=== PATIENT | male | born 1950 | race Caucasian/White ===

== ENCOUNTER 2024-07-03 08:10 | Outpatient (RCR) | payer MEDICARE, MEDICAID, SELFPAY ==
[2024-07-03 08:34] VITALS: BP 120/59; PULSE 65; RESP 16; TEMP 35.9
--- NOTE | 2024-07-03 09:42 | HP.PCM_ITS ---
History of Present Illness Date of Service: 07/03/24 Chief Complaint: Bilateral hallux full-thickness wounds. 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 Alvarez is a 74-year-old diabetic male presenting to wound care center today for evaluation of bilateral hallux wounds. Patient resides at a intermediate facility where he has seen wound care as well as podiatry without success of treatment of his hyperkeratotic tissue with underlying ulcerations. He is presenting today for surgical evaluation and treatment at the wound care center [facility]. He has finished a round of oral doxycycline. He does not show any infection at this time. Patient does admit to smoking as well as being diabetic. Nursing staff relates his blood sugar is controlled by the doctor at the [facility]. They deny any drainage or trauma at this time. Denies constitutional symptoms. No other pedal complaints at this time. PFSH Allergy/AdvReac Type Severity Reaction Status Date / Time chlorpromazine (From Allergy Unknown PT UNSURE Verified 07/03/24 08:53 Thorazine) OF REACTION codeine Allergy Unknown PT UNSURE Verified 07/03/24 08:53 OF REACTION haloperidol (From Haldol) Allergy Unknown PT UNSURE Verified 07/03/24 08:53 OF REACTION Social History Smoking Status: Current every day smoker Vital Signs Vital Signs Vital Signs: 07/03/24 08:34 Temperature 96.7 F L Temperature Source Temporal Pulse Rate 65 Respiratory Rate 16 Blood Pressure 120/59 L Blood Pressure Mean 79 Blood Pressure Source Monitor Blood Pressure Position Sitting Blood Pressure Location Left Forearm Oxygen Delivery Method Room Air Physical Exam Narrative Vascular: DP and PT pulses are palpable. CFT is brisk. +1 pitting edema appreciated bilateral lower extremity. No hair growth is appreciated. Skin temperature and turgor is within normal limits. No erythema. Neurological: Light touch intact. Patient does respond to painful stimuli. Dermatological: Full-thickness ulceration to right hallux measuring 0.8 x 0.4 x 0.2 cm. Wound base is granular nature. No sign of infection. Full-thickness ulceration to left hallux measuring 0.8 x 0.4 x 0.2 cm. Wound base is granular nature. No sign of infection. Toenails are thickened elongated discolored with evidence of some debris's. Webspaces 1 through 4 are clean dry and intact. Excisional debridement down to and including subcutaneous tissue with a number 3 mm dermal curette to the full-thickness ulceration to the right hallux without incident. Predebridement measurement was callus. Postdebridement measurement is 0.8 x 0.4 x 0.2 cm. Excisional debridement down to and including subcutaneous tissue with a number 3 mm dermal curette to the full-thickness ulceration to the left hallux without incident. Predebridement measurement was callus. Postdebridement measurement is 0.8 x 0.4 x 0.2 cm. Musculoskeletal: Decreased range of motion to the IPJ of the bilateral hallux. Decreased range of motion to first metatarsophalangeal joint bilateral. No pain with calf compression or pain to the full-thickness wounds. Debridement Note Debridement Note Debridement Free Text: Excisional debridement down to and including subcutaneous tissue with a number 3 mm dermal curette to the full-thickness ulceration to the right hallux without incident. Predebridement measurement was callus. Postdebridement measurement is 0.8 x 0.4 x 0.2 cm. Excisional debridement down to and including subcutaneous tissue with a number 3 mm dermal curette to the full-thickness ulceration to the left hallux without incident. Predebridement measurement was callus. Postdebridement measurement is 0.8 x 0.4 x 0.2 cm. Post-Debridement Measurements and Additional Note: Post-Debridement Measurements/Treatment - Nurse 1 - General Ulcer Assessment Start: 07/03/24 08:33 Freq: Status: Active Protocol: NARENDRA Activity Type Activity Date Activity User E-sign Co-sign Detail Recorded Client Recorded Date Recorded By Document 07/03/24 08:34 [facility] [id number] 07/03/24 08:52 [facility] 07/03/24 08:34 - Today's Visit Information Type of service Initial Visit Arrival Mode Wheelchair Transfer Assistance Other Transfer Assist (Other) standby Accompanied by 2 caregivers Patient Identification Verified (Name & Yes ) Vital Signs Temperature (97.8 F-99.1 F) 96.7 F L Temperature Source Temporal Pulse Rate (60-100) 65 Respiratory Rate (12-18) 16 Respiratory rate source Observation Oxygen Delivery Method Room Air Blood Pressure (90/60-120/80) 120/59 L Blood Pressure Mean 79 Source Monitor Position Sitting Blood Pressure Location Left Forearm History Since Last Visit- (Skip if this is Patient's initial visit) Left Footwear Slipper Right Footwear Slipper Pain Scale: 0-10 Numeric Is Patient Pain Free? Yes Lower Extremity Assessment/ Foot Assessment/ Toe Nail Assessment Right -Posterior Tibial Doppler Monophasic -Dorsalis Pedis Doppler Monophasic -Extremity Color Pale -Hair Growth on Legs No -Hair Growth on Toes No -Temperature of Extremity Warm -Capillary Refill Less than 3 Seconds -Other Deformity No -Prior Foot Ulcer No -Charcot Joint No -Prior Amputation No -Thick Yes -Discolored Yes -Deformed No -Improper Length & Hygeine Yes Left -Posterior Tibial Doppler Monophasic -Dorsalis Pedis Doppler Monophasic -Extremity Color Pale -Hair Growth on Legs No -Hair Growth on Toes No -Temperature of Extremity Warm -Capillary Refill Less than 3 Seconds -Other Deformity No -Prior Foot Ulcer No -Charcot Joint No -Prior Amputation No -Thick Yes -Discolored Yes -Deformed No -Improper Length & Hygeine Yes Communication Assessment Preferred language Haitian Cook Mayonnaise Required No Able to Read Yes Able to Write Yes Right Hearing Abillity Normal Left Hearing Abillity Normal Visual Assistive Devices None Teaching Assessment Barriers to Learning Knowledge Deficit Readiness To Learn Fair Willingness to Engage in Self Management Low Activies Readiness to Engage in Self Management Low Activities Anxiety Level Anxious Cooperation Cooperative Perception Coherent Interest in Health Problem Asks Questions Education Importance Acknowledges Need Does Patient Smoke tobacco or other No substances Smoking Status Current every day smoker Is Patient Diabetic Yes WC - Nurse 1 - General Ulcer Measurement Start: 07/03/24 08:33 Freq: Status: Active Protocol: Activity Type Activity Date Activity User E-sign Co-sign Detail Recorded Client Recorded Date Recorded By Document 07/03/24 08:34 [facility] [id number] 07/03/24 08:52 [facility] 07/03/24 08:34 Wound Center Nurse 1 #2- L HALLUX -Combined with other wound No -Current Size (cm) - Length 0.3 -Current Size (cm) - Width 0.2 -Current Size (cm) - Depth 0.2 -Total Square Cm 0.06 -Date of Last Picture (Recall this 07/03/24 field) -Photo Taken Yes -Tunneling No -Undermining/Tunneling No -Circular Undermining No -Exudate Amt Medium -Exudate Type Serosanguineous -Wound Margin Distinct, Outline Attached -Granulation Amt Large (67-100%) -Granulation Quality [place] -Slough/Fibrin Yes -Necrosis Amt Small (1-33%) -Necrotic Tissue Type Eschar -Texture (Halley-wound Skin Appearance) Assessed,Callus ,Scarring -Moisture (Halley-wound Skin Appearance) Assessed,Dry/ Scaly -Color (Halley-wound Skin Appearance) No Abnormality -Temperature (Halley-wound Skin No Abnormality Appearance) (Pt Warm) -Tenderness on Palpation (Halley-wound No Skin Appearance) -Ulcer Cleansing Soap and Water -Foul Odor after Cleansing No -Anesthetic Used 5% Lidocaine Gel #1- R HALLUX -Combined with other wound No -Current Size (cm) - Length 0.1 -Current Size (cm) - Width 0.1 -Current Size (cm) - Depth 0.3 -Total Square Cm 0.01 -Date of Last Picture (Recall this 07/03/24 field) -Photo Taken Yes -Epithelialization None Present -Tunneling No -Undermining/Tunneling No -Circular Undermining No -Exudate Amt Medium -Exudate Type Serosanguineous -Wound Margin Distinct, Outline Attached -Granulation Amt None Present (0 %) -Slough/Fibrin Yes -Necrosis Amt Large (67-100%) -Necrotic Tissue Type Eschar -Texture (Halley-wound Skin Appearance) Assessed,Callus ,Localized Edema -Moisture (Halley-wound Skin Appearance) Assessed,Dry/ Scaly -Color (Halley-wound Skin Appearance) Assessed -Temperature (Halley-wound Skin No Abnormality Appearance) (Pt Warm) -Tenderness on Palpation (Halley-wound No Skin Appearance) -Ulcer Cleansing Soap and Water -Foul Odor after Cleansing No -Anesthetic Used 5% Lidocaine Gel Lower Limb Edema Present Yes Right Calf (cm) 39.6 Right Ankle (cm) 24.6 Left Calf (cm) 40.3 Left Ankle (cm) 25.1 WC - Nurse 2 - General Ulcer CM Notes Start: 07/03/24 08:33 Freq: Status: Active Protocol: Activity Type Activity Date Activity User E-sign Co-sign Detail Recorded Client Recorded Date Recorded By Document 07/03/24 09:14 ANTHONY [id number] 07/03/24 09:16 ANTHONY 07/03/24 09:14 Wound Center Nurse 2 #2- L HALLUX -Time 09:14 -Correct Patient Yes -Correct Side, Site, Position Yes -Correct Procedure Yes -Procedure Performed Yes -Type of Procedure Debridement -Clinical Debridement Subcutaneous -Tissue Removed Subcutaneous -Post Debridement (cm) - Length 0.8 -Post Debridement (cm) - Width 0.4 -Post Debridement (cm) - Depth 0.2 -Total Square (Post) (cm) 0.32 -Area of Debridement (cm) - Length 0.8 -Area of Debridement (cm) - Width 0.4 -Total Square (Area) (cm) 0.32 -Tunneling No -Undermining/Tunneling No -Circular Undermining No -Wound/Ulcer Outcome Not Healed -Ulcer Cleansing Rinsed/ Irrigated with Saline -Foul Odor after Cleansing No -Bioengineered Tissue No -Bleeding Controlled with Pressure -Treatment Response Procedure Tolerated Well -Offloading No -Debridement - Subq, 1st 20sq cm Yes #1- R HALLUX -Time 09:15 -Correct Patient Yes -Correct Side, Site, Position Yes -Correct Procedure Yes -Procedure Performed Yes -Type of Procedure Debridement -Clinical Debridement Subcutaneous -Tissue Removed Subcutaneous -Post Debridement (cm) - Length 0.8 -Post Debridement (cm) - Width 0.4 -Post Debridement (cm) - Depth 0.1 -Total Square (Post) (cm) 0.32 -Area of Debridement (cm) - Length 0.8 -Area of Debridement (cm) - Width 0.4 -Total Square (Area) (cm) 0.32 -Tunneling No -Undermining/Tunneling No -Circular Undermining No -Wound/Ulcer Outcome Not Healed -Ulcer Cleansing Rinsed/ Irrigated with Saline -Foul Odor after Cleansing No -Bioengineered Tissue No -Bleeding Controlled with Pressure -Treatment Response Procedure Tolerated Well -Offloading No -Debridement - Subq, 1st 20sq cm No Pain Scale: 0-10 Numeric Is Patient Pain Free? Yes WC - Nurse 3 - General Ulcer D/C NN Start: 07/03/24 08:33 Freq: Status: Active Protocol: Activity Type Activity Date Activity User E-sign Co-sign Detail Recorded Client Recorded Date Recorded By Document 07/03/24 09:23 KW [id number] 07/03/24 09:23 KW 07/03/24 09:23 Wound Care Center Nurse 3 #2- L HALLUX -Other Dressing BETADINE -Primary Dressing Covered/Secured with Dry Gauze, Secured with Tape #1- R HALLUX -Other Dressing BETADINE -Primary Dressing Covered/Secured with Dry Gauze, Secured with Tape Pain Scale: 0-10 Numeric Is Patient Pain Free? Yes WC - Visit Discharge Discharge Condition Stable Ambulatory Status Wheelchair Medication Reconcilliation completed & No provided to patient/care provider Clinical Summary of Care Provided Yes Assessment/Plan Assessment/Plan (1) Non-pressure chronic ulcer of other part of right foot with fat layer exposed: CODE(S): L97.512 - Non-pressure chronic ulcer of other part of right foot with fat layer exposed PLAN: Patient was examined and evaluated. All findings were discussed with the patient. All questions were answered to the patient's satisfaction. Excisional debridement down to and including subcutaneous tissue with a number 3 mm dermal curette to the full-thickness ulceration to the right hallux without incident. Predebridement measurement was callus. Postdebridement measurement is 0.8 x 0.4 x 0.2 cm. Excisional debridement down to and including subcutaneous tissue with a number 3 mm dermal curette to the full-thickness ulceration to the left hallux without incident. Predebridement measurement was callus. Postdebridement measurement is 0.8 x 0.4 x 0.2 cm. The bilateral hallux were cleaned and patted dry. Betadine paint was applied to all wounds and covered with sterile Band-Aid. Nursing wound care orders were dispensed to the nursing staff that was present with the patient today. Due to the patient's location and chronicity of the full-thickness wounds the patient will be booked for surgery for the left foot then in about 6 weeks we will do surgery on the right foot consisting of hallux arthroplasty with delayed primary closure. Patient will need vascular studies prior to surgery to see if the patient is at risk for delayed healing. I did educate the patient on smoking and that smoking can cause decreased and vascular flow to the bilateral lower extremity which she was understanding of but shows no eagerness to quit smoking. He understands all risk and benefits though. I educated the patient on strict blood sugar control until we move forward with surgery which she was understanding of. Culture was taken of the bilateral hallux as we placed on antibiotics as needed. Follow-up at the wound care center with Dr. Mcdaniel in 1 week. (2) Non-pressure chronic ulcer of other part of left foot with fat layer exposed: CODE(S): L97.522 - Non-pressure chronic ulcer of other part of left foot with fat layer exposed (3) Other specified peripheral vascular diseases: CODE(S): I73.89 - Other specified peripheral vascular diseases (4) Chronic painful diabetic polyneuropathy: CODE(S): E11.42 - Type 2 diabetes mellitus with diabetic polyneuropathy
--- NOTE | 2024-07-09 11:24 | WC ---
PHOTO 07/03/24 LEFT HALLUX
--- NOTE | 2024-07-09 11:26 | WC ---
PHOTO 07/03/24 RIGHT HALLUX
== END 2024-07-03 23:59 | disposition home or self-care (01) ==
LOC: WC 08:10
PROVIDERS: PCP Internal Medicine Infectious Disease; Referring Provider Internal Medicine Infectious Disease; Visit Provider Podiatrist Foot & Ankle Surgery
DX: E11.621 Type 2 diabetes mellitus with foot ulcer (principal); L97.522 Non-pressure chronic ulcer of other part of left foot with fat layer exposed; L97.512 Non-pressure chronic ulcer of other part of right foot with fat layer exposed; E11.42 Type 2 diabetes mellitus with diabetic polyneuropathy; E11.51 Type 2 diabetes mellitus with diabetic peripheral angiopathy without gangrene; F17.200 Nicotine dependence, unspecified, uncomplicated; Z79.82 Long term (current) use of aspirin; Z79.84 Long term (current) use of oral hypoglycemic drugs
CPT/HCPCS: 11042; 87070; 87075; 87077; 87186; 87205; 99214; G0463

== ENCOUNTER 2024-08-01 08:15 | Outpatient (RCR) | payer MEDICARE, MEDICAID, SELFPAY ==
[2024-07-04 00:53] VITALS: BP 120/59; PULSE 65; RESP 16; TEMP 35.9
[2024-07-11 08:09] VITALS: BP 153/80; PULSE 72; RESP 18
--- NOTE | 2024-07-11 11:02 | PCM.WC.PN ---
History of Present Illness Date of Service: 07/11/24 Chief Complaint: Bilateral hallux full-thickness wounds. 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 Ruiz is a 74-year-old diabetic male presenting with concern today follow-up evaluation of full-thickness wound to the bilateral hallux. Patient has been compliant with dressing changes at retirement facility. He does continue to smoke. Blood sugar well-controlled. He denies any trauma. Denies constitutional symptoms. No pain complaints at this time. Objective Data Objective Data Vital Signs: Vital Signs Temp Pulse Resp BP O2 Del Method 96.7 F L 72 18 153/80 H Room Air 07/04/24 00:53 07/11/24 08:09 07/11/24 08:09 07/11/24 08:09 07/11/24 08:09 Oxygen Delivery Method Room Air Physical Exam Narrative Vascular: DP and PT pulses are palpable. CFT is brisk. +1 pitting edema appreciated bilateral lower extremity. No hair growth is appreciated. Skin temperature and turgor is within normal limits. No erythema. Neurological: Light touch intact. Patient does respond to painful stimuli. Dermatological: Full-thickness ulceration to right hallux measuring 0.6 x 0.3 x 0.1 cm. Wound base is granular nature. No sign of infection. Full-thickness ulceration to left hallux measuring 0.3 x 0.3 x 0.1 cm. Wound base is granular nature. No sign of infection. Toenails are thickened elongated discolored with evidence of some debris's. Webspaces 1 through 4 are clean dry and intact. Excisional debridement down to and including subcutaneous tissue with a number 3 mm dermal curette to the full-thickness ulceration to the right hallux without incident. Predebridement measurement was callus. Postdebridement measurement is 0.6 x 0.3 x 0.1 cm. Excisional debridement down to and including subcutaneous tissue with a number 3 mm dermal curette to the full-thickness ulceration to the left hallux without incident. Predebridement measurement was callus. Postdebridement measurement is 0.3 x 0.3 x 0.1 cm. Musculoskeletal: Decreased range of motion to the IPJ of the bilateral hallux. Decreased range of motion to first metatarsophalangeal joint bilateral. No pain with calf compression or pain to the full-thickness wounds. Debridement Note Debridement Note Debridement Free Text: Excisional debridement down to and including subcutaneous tissue with a number 3 mm dermal curette to the full-thickness ulceration to the right hallux without incident. Predebridement measurement was callus. Postdebridement measurement is 0.6 x 0.3 x 0.1 cm. Excisional debridement down to and including subcutaneous tissue with a number 3 mm dermal curette to the full-thickness ulceration to the left hallux without incident. Predebridement measurement was callus. Postdebridement measurement is 0.3 x 0.3 x 0.1 cm. 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 Any new allergies or adverse reactions No Had a fall/change in ADL's that may No increase risk of falls Signs or symptoms of abuse and/or No neglect since last visit Have you been in the hospital since your No last visit? Has dressing in place as prescribed Yes Has compression in place as prescribed Yes Has offloadiing in place as prescribed N/A Experienced any changes in pain level or No management Left Footwear Regular Shoe Right Footwear Regular Shoe Pain Scale: 0-10 Numeric Is Patient Pain Free? Yes - Nurse 1 - General Ulcer Measurement Start: 07/11/24 08:09 Freq: Status: Active Protocol: Activity Type Activity Date Activity User E-sign Co-sign Detail Recorded Client Recorded Date Recorded By Document 07/11/24 08:09 KW [id number] 07/11/24 08:15 KW 07/11/24 08:09 Wound Center Nurse 1 #2- L HALLUX -Current Size (cm) - Length 0.1 -Current Size (cm) - Width 0.1 -Current Size (cm) - Depth 0.1 -Total Square Cm 0.01 -Texture (Halley-wound Skin Appearance) Assessed,Callus -Moisture (Halley-wound Skin Appearance) Assessed -Color (Halley-wound Skin Appearance) Assessed -Temperature (Halley-wound Skin No Abnormality Appearance) (Pt Warm) -Tenderness on Palpation (Halley-wound No Skin Appearance) -Ulcer Cleansing Rinsed/ Irrigated with Saline -Foul Odor after Cleansing No -Anesthetic Used 5% Lidocaine Gel #1- R HALLUX -Current Size (cm) - Length 0.1 -Current Size (cm) - Width 0.1 -Current Size (cm) - Depth 0.1 -Total Square Cm 0.01 -Texture (Halley-wound Skin Appearance) Assessed,Callus -Moisture (Halley-wound Skin Appearance) Assessed -Color (Halley-wound Skin Appearance) Assessed -Temperature (Halley-wound Skin No Abnormality Appearance) (Pt Warm) -Tenderness on Palpation (Halley-wound No Skin Appearance) -Ulcer Cleansing Rinsed/ Irrigated with Saline -Foul Odor after Cleansing No -Anesthetic Used 5% Lidocaine Gel WC - Nurse 2 - General Ulcer CM Notes Start: 07/11/24 08:09 Freq: Status: Active Protocol: Activity Type Activity Date Activity User E-sign Co-sign Detail Recorded Client Recorded Date Recorded By Document 07/11/24 08:44 JF [id number] 07/11/24 08:47 JF 07/11/24 08:44 Wound Center Nurse 2 #2- L HALLUX -Time 08:46 -Correct Patient Yes -Correct Side, Site, Position Yes -Correct Procedure Yes -Procedure Performed Yes -Type of Procedure Debridement -Clinical Debridement Subcutaneous -Tissue Removed Subcutaneous -Post Debridement (cm) - Length 0.3 -Post Debridement (cm) - Width 0.3 -Post Debridement (cm) - Depth 0.1 -Total Square (Post) (cm) 0.09 -Area of Debridement (cm) - Length 0.3 -Area of Debridement (cm) - Width 0.3 -Total Square (Area) (cm) 0.09 -Tunneling No -Undermining/Tunneling No -Circular Undermining No -Wound/Ulcer Outcome Not Healed -Ulcer Cleansing Rinsed/ Irrigated with Saline -Foul Odor after Cleansing No -Bioengineered Tissue No -Bleeding Controlled with Pressure -Treatment Response Procedure Tolerated Well -Offloading No -Debridement - Subq, 1st 20sq cm No #1- R HALLUX -Time 08:47 -Correct Patient Yes -Correct Side, Site, Position Yes -Correct Procedure Yes -Procedure Performed Yes -Type of Procedure Debridement -Clinical Debridement Subcutaneous -Tissue Removed Subcutaneous -Post Debridement (cm) - Length 0.6 -Post Debridement (cm) - Width 0.3 -Post Debridement (cm) - Depth 0.1 -Total Square (Post) (cm) 0.18 -Area of Debridement (cm) - Length 0.6 -Area of Debridement (cm) - Width 0.3 -Total Square (Area) (cm) 0.18 -Tunneling No -Undermining/Tunneling No -Circular Undermining No -Wound/Ulcer Outcome Not Healed -Ulcer Cleansing Rinsed/ Irrigated with Saline -Foul Odor after Cleansing No -Bioengineered Tissue No -Bleeding Controlled with Pressure -Treatment Response Procedure Tolerated Well -Offloading No -Debridement - Subq, 1st 20sq cm Yes Pain Scale: 0-10 Numeric Is Patient Pain Free? Yes - Nurse 3 - General Ulcer D/C NN Start: 07/11/24 08:09 Freq: Status: Active Protocol: Activity Type Activity Date Activity User E-sign Co-sign Detail Recorded Client Recorded Date Recorded By Document 07/11/24 08:52 KW [id number] 07/11/24 08:52 KW 07/11/24 08:52 Wound Care Center Nurse 3 #2- L HALLUX -Other Dressing betadine -Primary Dressing Covered/Secured with Dry Gauze, Secured with Tape #1- R HALLUX -Other Dressing betadine -Primary Dressing Covered/Secured with Dry Gauze, Secured with Tape Pain Scale: 0-10 Numeric Is Patient Pain Free? Yes - Visit Discharge Discharge Condition Stable Ambulatory Status Ambulatory Medication Reconcilliation completed & No provided to patient/care provider Clinical Summary of Care Provided Yes Assessment/Plan Assessment/Plan (1) Non-pressure chronic ulcer of other part of left foot with fat layer exposed: CODE(S): L97.522 - Non-pressure chronic ulcer of other part of left foot with fat layer exposed PLAN: Patient was examined and evaluated. All findings were discussed with the patient. All questions were answered to the patient's satisfaction. Excisional debridement down to and including subcutaneous tissue with a number 3 mm dermal curette to the full-thickness ulceration to the right hallux without incident. Predebridement measurement was callus. Postdebridement measurement is 0.6 x 0.3 x 0.1 cm. Excisional debridement down to and including subcutaneous tissue with a number 3 mm dermal curette to the full-thickness ulceration to the left hallux without incident. Predebridement measurement was callus. Postdebridement measurement is 0.3 x 0.3 x 0.1 cm. The bilateral hallux's were wiped clean and patted dry. Betadine paint and dry sterile dressing was applied to the hallux bilaterally. Patient will continue daily dressing change retirement facility. The patient will also be placed on Bactrim DS twice daily for 2 weeks due to his culture and sensitivity returning with bacterial growth. Will begin authorization through the patient's insurance for surgery to the right hallux for IPJ arthroplasty and delayed primary closure. Patient understands all risk and benefits. Follow-up at the wound care center with Dr. Mcdaniel in 1 week. (2) Non-pressure chronic ulcer of other part of right foot with fat layer exposed: CODE(S): L97.512 - Non-pressure chronic ulcer of other part of right foot with fat layer exposed (3) Chronic painful diabetic polyneuropathy: CODE(S): E11.42 - Type 2 diabetes mellitus with diabetic polyneuropathy
[2024-07-18 08:27] VITALS: BP 153/63; PULSE 73; RESP 18; TEMP 35.7
--- NOTE | 2024-07-18 08:57 | PN.PCM_ITS ---
History of Present Illness Date of Service: 07/11/24 Chief Complaint: Bilateral hallux full-thickness wounds. 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 Ruiz is a 74-year-old diabetic male presenting with concern today follow- up evaluation of full-thickness wound to the bilateral hallux. Patient has been getting dressing changes at the nursing facility and is been authorized to his POA to move forward with elective surgery to the right great toe. He also complains of swelling to the left leg. He has no pain to the bilateral lower extremity. Denies trauma. Denies constitutional symptoms. No other pedal complaints at this time. Objective Data Objective Data Vital Signs: Vital Signs Temp Pulse Resp BP O2 Del Method 96.3 F L 73 18 153/63 H Room Air 07/18/24 08:27 07/18/24 08:27 07/18/24 08:27 07/18/24 08:27 07/18/24 08:27 Oxygen Delivery Method Room Air Physical Exam Narrative Vascular: DP and PT pulses are palpable. CFT is brisk. No hair growth is appreciated. Skin temperature and turgor is within normal limits. No erythema. Nonpitting edema to the bilateral lower extremity. Neurological: Light touch intact. Patient does respond to painful stimuli. Dermatological: Full-thickness ulceration to right hallux measuring 0.7 x 0.3 x 0.1 cm. Wound base is granular nature. No sign of infection. Full-thickness ulceration to left hallux measuring 0.6 x 0.5 x 0.1 cm. Wound base is granular nature. No sign of infection. Toenails are thickened elongated discolored with evidence of some debris's. Webspaces 1 through 4 are clean dry and intact. Excisional debridement down to and including subcutaneous tissue with a number 3 mm dermal curette to the full-thickness ulceration to the right hallux without incident. Predebridement measurement was callus. Postdebridement measurement is 0.7 x 0.3 x 0.1 cm. Excisional debridement down to and including subcutaneous tissue with a number 3 mm dermal curette to the full-thickness ulceration to the left hallux without incident. Predebridement measurement was callus. Postdebridement measurement is 0.6 x 0.5 x 0.1 cm. Musculoskeletal: Decreased range of motion to the IPJ of the bilateral hallux. Decreased range of motion to first metatarsophalangeal joint bilateral. No pain with calf compression or pain to the full-thickness wounds. Debridement Note Debridement Note Debridement Free Text: Excisional debridement down to and including subcutaneous tissue with a number 3 mm dermal curette to the full-thickness ulceration to the right hallux without incident. Predebridement measurement was callus. Postdebridement measurement is 0.7 x 0.3 x 0.1 cm. Excisional debridement down to and including subcutaneous tissue with a number 3 mm dermal curette to the full-thickness ulceration to the left hallux without incident. Predebridement measurement was callus. Postdebridement measurement is 0.6 x 0.5 x 0.1 cm. 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 PRESS OPERATOR ) ) Arrival Mode Wheelchair Wheelchair Transfer Assistance None Accompanied by care staff [employer]FF Patient Identification Verified (Name & Yes Yes ) Vital Signs Temperature (97.8 F-99.1 F) 96.3 F L Temperature Source Temporal Pulse Rate (60-100) 72 73 Pulse Location Monitor Monitor Respiratory Rate (12-18) 18 18 Respiratory rate source Observation Observation Oxygen Delivery Method Room Air Room Air Blood Pressure (90/60-120/80) 153/80 H 153/63 H Blood Pressure Mean (mm Hg) 104 93 Source Monitor Monitor Position Semi-Fowlers Sitting Blood Pressure Location Left Arm Left Arm History Since Last Visit- (Skip if this is Patient's initial visit) Have you changed medications since your No No last visit? Any new allergies or adverse reactions No No Had a fall/change in ADL's that may No No increase risk of falls Signs or symptoms of abuse and/or No No neglect since last visit Have you been in the hospital since your No No last visit? Has dressing in place as prescribed Yes Yes Has compression in place as prescribed Yes N/A Has offloadiing in place as prescribed N/A N/A Experienced any changes in pain level or No No management Left Footwear Regular Shoe Regular Shoe Right Footwear Regular Shoe Regular Shoe Pain Scale: 0-10 Numeric Is Patient Pain Free? Yes Yes WC - Nurse 1 - General Ulcer Measurement Start: 07/11/24 08:09 Freq: Status: Active Protocol: Activity Type Activity Date Activity User E-sign Co-sign Detail Recorded Client Recorded Date Recorded By Document 07/11/24 08:09 KW [id number] 07/11/24 08:15 KW Document 07/18/24 08:27 GM [id number] 07/18/24 08:30 GM 07/11/24 07/18/24 08:09 08:27 Wound Center Nurse 1 #2- L HALLUX -Current Size (cm) - Length 0.1 0.4 -Current Size (cm) - Width 0.1 0.4 -Current Size (cm) - Depth 0.1 0.1 -Total Square Cm 0.01 0.16 -Date of Last Picture (Recall this 07/18/24 field) -Photo Taken Yes -Epithelialization None Present -Tunneling No -Undermining/Tunneling No -Circular Undermining No -Exudate Amt None Present -Wound Margin Thickened -Granulation Amt Small (1-33%) -Granulation Quality Pale -Slough/Fibrin Yes -Necrosis Amt Small (1-33%) -Texture (Halley-wound Skin Appearance) Assessed,Callus Assessed,Callus -Moisture (Halley-wound Skin Appearance) Assessed Assessed -Color (Halley-wound Skin Appearance) Assessed Assessed -Temperature (Halley-wound Skin No Abnormality No Abnormality Appearance) (Pt Warm) (Pt Warm) -Tenderness on Palpation (Halley-wound No No Skin Appearance) -Ulcer Cleansing Rinsed/ Soap and Water Irrigated with Saline -Foul Odor after Cleansing No No -Anesthetic Used 5% Lidocaine 5% Lidocaine Gel Gel #1- R HALLUX -Current Size (cm) - Length 0.1 0.5 -Current Size (cm) - Width 0.1 0.2 -Current Size (cm) - Depth 0.1 0.1 -Total Square Cm 0.01 0.10 -Date of Last Picture (Recall this 07/18/24 field) -Photo Taken Yes -Epithelialization None Present -Tunneling No -Undermining/Tunneling No -Circular Undermining No -Exudate Amt None Present -Wound Margin Thickened -Granulation Amt Small (1-33%) -Granulation Quality [place] -Texture (Halley-wound Skin Appearance) Assessed,Callus Assessed -Moisture (Halley-wound Skin Appearance) Assessed Assessed -Color (Halley-wound Skin Appearance) Assessed Assessed -Temperature (Halley-wound Skin No Abnormality No Abnormality Appearance) (Pt Warm) (Pt Warm) -Tenderness on Palpation (Halley-wound No No Skin Appearance) -Ulcer Cleansing Rinsed/ Soap and Water Irrigated with Saline -Foul Odor after Cleansing No No -Anesthetic Used 5% Lidocaine 5% Lidocaine Gel Gel Lower Limb Edema Present Yes Right Calf (cm) 39.3 Right Ankle (cm) 24.0 Left Calf (cm) 40 Left Ankle (cm) 25 WC - Nurse 2 - General Ulcer CM Notes Start: 07/11/24 08:09 Freq: Status: Active Protocol: Activity Type Activity Date Activity User E-sign Co-sign Detail Recorded Client Recorded Date Recorded By Document 07/11/24 08:44 JF [id number] 07/11/24 08:47 Document 07/18/24 08:45 JF [id number] 07/18/24 08:48 07/11/24 07/18/24 08:44 08:45 Wound Center Nurse 2 #2- L HALLUX -Time 08:46 08:46 -Correct Patient Yes Yes -Correct Side, Site, Position Yes Yes -Correct Procedure Yes Yes -Procedure Performed Yes Yes -Type of Procedure Debridement Debridement -Clinical Debridement Subcutaneous Subcutaneous -Tissue Removed Subcutaneous Subcutaneous -Post Debridement (cm) - Length 0.3 0.6 -Post Debridement (cm) - Width 0.3 0.5 -Post Debridement (cm) - Depth 0.1 0.1 -Total Square (Post) (cm) 0.09 0.30 -Area of Debridement (cm) - Length 0.3 0.6 -Area of Debridement (cm) - Width 0.3 0.5 -Total Square (Area) (cm) 0.09 0.30 -Tunneling No No -Undermining/Tunneling No No -Circular Undermining No No -Wound/Ulcer Outcome Not Healed Not Healed -Ulcer Cleansing Rinsed/ Rinsed/ Irrigated with Irrigated with Saline Saline -Foul Odor after Cleansing No No -Bioengineered Tissue No No -Bleeding Controlled with Pressure Pressure -Treatment Response Procedure Procedure Tolerated Well Tolerated Well -Offloading No Yes -Type of Offloading Surgical Shoe -Debridement - Subq, 1st 20sq cm No No #1- R HALLUX -Time 08:47 08:47 -Correct Patient Yes Yes -Correct Side, Site, Position Yes Yes -Correct Procedure Yes Yes -Procedure Performed Yes Yes -Type of Procedure Debridement Debridement -Clinical Debridement Subcutaneous Subcutaneous -Tissue Removed Subcutaneous Subcutaneous -Post Debridement (cm) - Length 0.6 0.7 -Post Debridement (cm) - Width 0.3 0.3 -Post Debridement (cm) - Depth 0.1 0.1 -Total Square (Post) (cm) 0.18 0.21 -Area of Debridement (cm) - Length 0.6 0.7 -Area of Debridement (cm) - Width 0.3 0.3 -Total Square (Area) (cm) 0.18 0.21 -Tunneling No No -Undermining/Tunneling No No -Circular Undermining No No -Wound/Ulcer Outcome Not Healed Not Healed -Ulcer Cleansing Rinsed/ Rinsed/ Irrigated with Irrigated with Saline Saline -Foul Odor after Cleansing No No -Bioengineered Tissue No No -Bleeding Controlled with Pressure Pressure -Treatment Response Procedure Procedure Tolerated Well Tolerated Well -Offloading No Yes -Type of Offloading Surgical Shoe -Debridement - Subq, 1st 20sq cm Yes Yes Pain Scale: 0-10 Numeric Is Patient Pain Free? Yes Yes - Nurse 3 - General Ulcer D/C NN Start: 07/11/24 08:09 Freq: Status: Active Protocol: Activity Type Activity Date Activity User E-sign Co-sign Detail Recorded Client Recorded Date Recorded By Document 07/11/24 08:52 KW [id number] 07/11/24 08:52 KW 07/11/24 08:52 Wound Care Center Nurse 3 #2- L HALLUX -Other Dressing betadine -Primary Dressing Covered/Secured with Dry Gauze, Secured with Tape #1- R HALLUX -Other Dressing betadine -Primary Dressing Covered/Secured with Dry Gauze, Secured with Tape Pain Scale: 0-10 Numeric Is Patient Pain Free? Yes WC - Visit Discharge Discharge Condition Stable Ambulatory Status Ambulatory Medication Reconcilliation completed & No provided to patient/care provider Clinical Summary of Care Provided Yes Assessment/Plan Assessment/Plan (1) Non-pressure chronic ulcer of other part of left foot with fat layer exposed: CODE(S): L97.522 - Non-pressure chronic ulcer of other part of left foot with fat layer exposed PLAN: Patient was examined and evaluated. All findings were discussed with the patient. All questions were answered to the patient's satisfaction. Excisional debridement down to and including subcutaneous tissue with a number 3 mm dermal curette to the full-thickness ulceration to the right hallux without incident. Predebridement measurement was callus. Postdebridement measurement is 0.7 x 0.3 x 0.1 cm. Excisional debridement down to and including subcutaneous tissue with a number 3 mm dermal curette to the full-thickness ulceration to the left hallux without incident. Predebridement measurement was callus. Postdebridement measurement is 0.6 x 0.5 x 0.1 cm. The bilateral hallux was wiped clean and patted dry. Betadine paint dry sterile dressing was applied. Patient will do dressing changes as instructed. Patient will continue his antibiotics if he has not finished. We received an authorization form from the POA to move forward with elective right foot surgery. The patient will be booked and scheduled as necessary. Follow-up at the wound care center with Dr. Mcdaniel in 1 week. (2) Non-pressure chronic ulcer of other part of right foot with fat layer exposed: CODE(S): L97.512 - Non-pressure chronic ulcer of other part of right foot with fat layer exposed (3) Chronic painful diabetic polyneuropathy: CODE(S): E11.42 - Type 2 diabetes mellitus with diabetic polyneuropathy
--- NOTE | 2024-07-19 08:23 | WC ---
PHOTO 07/18/24 RIGHT ABRAHANUX
--- NOTE | 2024-07-19 08:39 | WC ---
PHOTO 07/18/24 LEFT HALLUX
[2024-08-01 08:15] VITALS: BP 151/68; PULSE 69; RESP 18; TEMP 35.8
--- NOTE | 2024-08-01 09:09 | PCM.WC.PN ---
History of Present Illness Date of Service: 07/11/24 Chief Complaint: Bilateral hallux full-thickness wounds. 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 Ruiz is a 74-year-old diabetic male presenting with concern today follow-up evaluation of full-thickness wound to the bilateral hallux. Patient has been getting dressing changes per nursing staff. He denies any pain to the bilateral lower extremity. He is waiting to hear back from the office for surgical date for the right great toe procedure. He denies any pain except with shoe gear due to thickened elongated toenails 1 through 5 bilateral. Blood sugar well-controlled. Denies trauma. Denies constitutional symptoms. No other pedal complaints at this time. Objective Data Objective Data Vital Signs: Vital Signs Temp Pulse Resp BP O2 Del Method 96.4 F L 69 18 151/68 H Room Air 08/01/24 08:15 08/01/24 08:15 08/01/24 08:15 08/01/24 08:15 08/01/24 08:15 Oxygen Delivery Method Room Air Physical Exam Narrative Vascular: DP and PT pulses are palpable. CFT is brisk. No hair growth is appreciated. Skin temperature and turgor is within normal limits. No erythema. Nonpitting edema to the bilateral lower extremity. Neurological: Light touch intact. Patient does respond to painful stimuli. Dermatological: Full-thickness ulceration to right hallux measuring 0.5 x 0.4 x 0.1 cm. Wound base is granular nature. No sign of infection. Full-thickness ulceration to left hallux is healed. Wound base is granular nature. toenails 1 through 5 are thickened elongated discolored with evidence of subungual debris's. Webspaces 1 through 4 are clean dry and intact. Excisional debridement down to and including subcutaneous tissue with a number 3 mm dermal curette to the full-thickness ulceration to the right hallux without incident. Predebridement measurement was callus. Postdebridement measurement is 0.5 x 0.4 x 0.1 cm. Musculoskeletal: Decreased range of motion to the IPJ of the bilateral hallux. Decreased range of motion to first metatarsophalangeal joint bilateral. No pain with calf compression or pain to the full-thickness wounds. Debridement Note Debridement Note Debridement Free Text: Excisional debridement down to and including subcutaneous tissue with a number 3 mm dermal curette to the full-thickness ulceration to the right hallux without incident. Predebridement measurement was callus. Postdebridement measurement is 0.5 x 0.4 x 0.1 cm. Post-Debridement Measurements and Additional Note: Post-Debridement Measurements/Treatment WALDEMAR - Nurse 1 - General Ulcer Assessment Start: 07/11/24 08:09 Freq: Status: Active Protocol: NARENDRA Activity Type Activity Date Activity User E-sign Co-sign Detail Recorded Client Recorded Date Recorded By Document 07/11/24 08:09 KW [id number] 07/11/24 08:15 KW Document 07/18/24 08:27 GM [id number] 07/18/24 08:30 GM Document 08/01/24 08:15 GM [id number] 08/01/24 08:18 GM 07/11/24 07/18/24 08/01/24 08:09 08:27 08:15 - Today's Visit Information Type of service Follow-up Visit Follow-up Visit Follow-up Visit (Physician/DRIER AND EVAPORATOR OPERATOR (Physician/DRIER AND EVAPORATOR OPERATOR (Physician/DRIER AND EVAPORATOR OPERATOR ) ) ) Arrival Mode Wheelchair Wheelchair Walker Transfer Assistance None Accompanied by care staff PRISON NURSE STAFF Patient Identification Verified (Name & Yes Yes Yes ) Vital Signs Temperature (97.8 F-99.1 F) 96.3 F L 96.4 F L Temperature Source Temporal Temporal Pulse Rate (60-100) 72 73 69 Pulse Location Monitor Monitor Monitor Respiratory Rate (12-18) 18 18 18 Respiratory rate source Observation Observation Observation Oxygen Delivery Method Room Air Room Air Room Air Blood Pressure (90/60-120/80) 153/80 H 153/63 H 151/68 H Blood Pressure Mean (mm Hg) 104 93 95 Source Monitor Monitor Monitor Position Semi-Fowlers Sitting Semi-Fowlers Blood Pressure Location Left Arm Left Arm Left Arm History Since Last Visit- (Skip if this is Patient's initial visit) Have you changed medications since your No No No last visit? Any new allergies or adverse reactions No No No Had a fall/change in ADL's that may No No No increase risk of falls Signs or symptoms of abuse and/or No No No neglect since last visit Have you been in the hospital since your No No No last visit? Has dressing in place as prescribed Yes Yes Yes Has compression in place as prescribed Yes N/A Yes Has offloadiing in place as prescribed N/A N/A N/A Experienced any changes in pain level or No No No management Left Footwear Regular Shoe Regular Shoe Regular Shoe Right Footwear Regular Shoe Regular Shoe Regular Shoe Pain Scale: 0-10 Numeric Is Patient Pain Free? Yes Yes Yes WC - Nurse 1 - General Ulcer Measurement Start: 07/11/24 08:09 Freq: Status: Active Protocol: Activity Type Activity Date Activity User E-sign Co-sign Detail Recorded Client Recorded Date Recorded By Document 07/11/24 08:09 KW [id number] 07/11/24 08:15 KW Document 07/18/24 08:27 GM [id number] 07/18/24 08:30 GM Document 08/01/24 08:15 GM [id number] 08/01/24 08:18 GM 07/11/24 07/18/24 08/01/24 08:09 08:27 08:15 Wound Center Nurse 1 #2- L HALLUX -Current Size (cm) - Length 0.1 0.4 0.6 -Current Size (cm) - Width 0.1 0.4 0.7 -Current Size (cm) - Depth 0.1 0.1 0.1 -Total Square Cm 0.01 0.16 0.42 -Date of Last Picture (Recall this 07/18/24 field) -Photo Taken Yes -Epithelialization None Present -Tunneling No -Undermining/Tunneling No -Circular Undermining No -Exudate Amt None Present Small -Exudate Type Serosanguineous -Wound Margin Thickened Distinct, Outline Attached -Granulation Amt Small (1-33%) Small (1-33%) -Granulation Quality Pale [place] -Slough/Fibrin Yes -Necrosis Amt Small (1-33%) Small (1-33%) -Necrotic Tissue Type Adherent Slough -Texture (Halley-wound Skin Appearance) Assessed,Callus Assessed,Callus Assessed,Callus -Moisture (Halley-wound Skin Appearance) Assessed Assessed Assessed -Color (Halley-wound Skin Appearance) Assessed Assessed Assessed -Temperature (Halley-wound Skin No Abnormality No Abnormality No Abnormality Appearance) (Pt Warm) (Pt Warm) (Pt Warm) -Tenderness on Palpation (Halley-wound No No No Skin Appearance) -Ulcer Cleansing Rinsed/ Soap and Water Rinsed/ Irrigated with Irrigated with Saline Saline -Foul Odor after Cleansing No No No -Anesthetic Used 5% Lidocaine 5% Lidocaine 5% Lidocaine Gel Gel Gel #1- R HALLUX -Current Size (cm) - Length 0.1 0.5 0.5 -Current Size (cm) - Width 0.1 0.2 0.8 -Current Size (cm) - Depth 0.1 0.1 0.1 -Total Square Cm 0.01 0.10 0.40 -Date of Last Picture (Recall this 07/18/24 field) -Photo Taken Yes -Epithelialization None Present -Tunneling No -Undermining/Tunneling No -Circular Undermining No -Exudate Amt None Present Small -Exudate Type Serosanguineous -Wound Margin Thickened Distinct, Outline Attached -Granulation Amt Small (1-33%) -Granulation Quality [place] -Texture (Halley-wound Skin Appearance) Assessed,Callus Assessed Assessed,Callus -Moisture (Halley-wound Skin Appearance) Assessed Assessed Assessed -Color (Halley-wound Skin Appearance) Assessed Assessed Assessed -Temperature (Halley-wound Skin No Abnormality No Abnormality No Abnormality Appearance) (Pt Warm) (Pt Warm) (Pt Warm) -Tenderness on Palpation (Halley-wound No No No Skin Appearance) -Ulcer Cleansing Rinsed/ Soap and Water Rinsed/ Irrigated with Irrigated with Saline Saline -Foul Odor after Cleansing No No No -Anesthetic Used 5% Lidocaine 5% Lidocaine 5% Lidocaine Gel Gel Gel Lower Limb Edema Present Yes Right Calf (cm) 39.3 38.5 Right Ankle (cm) 24.0 23.5 Left Calf (cm) 40 38 Left Ankle (cm) 25 24 WC - Nurse 2 - General Ulcer CM Notes Start: 07/11/24 08:09 Freq: Status: Active Protocol: Activity Type Activity Date Activity User E-sign Co-sign Detail Recorded Client Recorded Date Recorded By Document 07/11/24 08:44 ANTHONY [id number] 07/11/24 08:47 JF Document 07/18/24 08:45 ANTHONY [id number] 07/18/24 08:48 JF Document 08/01/24 08:37 ANTHONY [id number] 08/01/24 08:47 JF 07/11/24 07/18/24 08/01/24 08:44 08:45 08:37 Wound Center Nurse 2 #2- L HALLUX -Time 08:46 08:46 08:41 -Correct Patient Yes Yes No -Correct Side, Site, Position Yes Yes No -Correct Procedure Yes Yes No -Procedure Performed Yes Yes No -Type of Procedure Debridement Debridement -Clinical Debridement Subcutaneous Subcutaneous -Tissue Removed Subcutaneous Subcutaneous -Post Debridement (cm) - Length 0.3 0.6 0 -Post Debridement (cm) - Width 0.3 0.5 0 -Post Debridement (cm) - Depth 0.1 0.1 0 -Total Square (Post) (cm) 0.09 0.30 0 -Area of Debridement (cm) - Length 0.3 0.6 0 -Area of Debridement (cm) - Width 0.3 0.5 0 -Total Square (Area) (cm) 0.09 0.30 0 -Tunneling No No -Undermining/Tunneling No No -Circular Undermining No No -Wound/Ulcer Outcome Not Healed Not Healed Healed- Epithelialized -Ulcer Cleansing Rinsed/ Rinsed/ Irrigated with Irrigated with Saline Saline -Foul Odor after Cleansing No No -Bioengineered Tissue No No -Bleeding Controlled with Pressure Pressure -Treatment Response Procedure Procedure Tolerated Well Tolerated Well -Offloading No Yes -Type of Offloading Surgical Shoe -Debridement - Subq, 1st 20sq cm No No #1- R HALLUX -Time 08:47 08:47 08:46 -Correct Patient Yes Yes Yes -Correct Side, Site, Position Yes Yes Yes -Correct Procedure Yes Yes Yes -Procedure Performed Yes Yes Yes -Type of Procedure Debridement Debridement Debridement -Clinical Debridement Subcutaneous Subcutaneous Subcutaneous -Tissue Removed Subcutaneous Subcutaneous Subcutaneous -Post Debridement (cm) - Length 0.6 0.7 0.5 -Post Debridement (cm) - Width 0.3 0.3 0.4 -Post Debridement (cm) - Depth 0.1 0.1 0.1 -Total Square (Post) (cm) 0.18 0.21 0.20 -Area of Debridement (cm) - Length 0.6 0.7 0.5 -Area of Debridement (cm) - Width 0.3 0.3 0.4 -Total Square (Area) (cm) 0.18 0.21 0.20 -Tunneling No No No -Undermining/Tunneling No No No -Circular Undermining No No No -Wound/Ulcer Outcome Not Healed Not Healed Not Healed -Ulcer Cleansing Rinsed/ Rinsed/ Rinsed/ Irrigated with Irrigated with Irrigated with Saline Saline Saline -Foul Odor after Cleansing No No No -Bioengineered Tissue No No No -Bleeding Controlled with Pressure Pressure Pressure -Treatment Response Procedure Procedure Procedure Tolerated Well Tolerated Well Tolerated Well -Offloading No Yes No -Type of Offloading Surgical Shoe -Debridement - Subq, 1st 20sq cm Yes Yes Yes Pain Scale: 0-10 Numeric Is Patient Pain Free? Yes Yes Yes WC - Nurse 3 - General Ulcer D/C NN Start: 07/11/24 08:09 Freq: Status: Active Protocol: Activity Type Activity Date Activity User E-sign Co-sign Detail Recorded Client Recorded Date Recorded By Document 07/11/24 08:52 KW [id number] 07/11/24 08:52 KW Document 07/18/24 09:04 RB [id number] 07/18/24 09:06 RB Document 08/01/24 08:50 GM [id number] 08/01/24 08:51 GM 07/11/24 07/18/24 08/01/24 08:52 09:04 08:50 Wound Care Center Nurse 3 #2- L HALLUX -Ulcer Cleansing Rinsed/ Irrigated with Saline -Other Dressing betadine betadine -Primary Dressing Covered/Secured with Dry Gauze, Dry Gauze, Secured with Secured with Tape Tape #1- R HALLUX -Ulcer Cleansing Rinsed/ Not Cleansed Irrigated with Saline -Foul Odor after Cleansing No -Other Dressing betadine betadine -Primary Dressing Covered/Secured with Dry Gauze, Dry Gauze, Dry Gauze, Secured with Secured with Secured with Tape Tape Tape bilateral LE -Tubular Bandage Single Layer Single Layer -Size of Tubigrip Used Size E Size E -Size E ($) 2 2 Treatment Response Procedure Tolerated Well Pain Scale: 0-10 Numeric Is Patient Pain Free? Yes Yes Yes Teaching: Wound Center Compression Wraps & Stockings -Person Taught Patient -Teaching Method Discussion -Response to teaching Reinforcement Needed WC - Visit Discharge Discharge Condition Stable Stable Stable Ambulatory Status Ambulatory Wheelchair Wheelchair Transportation [place] Private Auto Medication Reconcilliation completed & No No provided to patient/care provider Clinical Summary of Care Provided Yes Yes Assessment/Plan Assessment/Plan (1) Non-pressure chronic ulcer of other part of right foot with fat layer exposed: CODE(S): L97.512 - Non-pressure chronic ulcer of other part of right foot with fat layer exposed PLAN: Patient was examined and evaluated. All findings were discussed with the patient. All questions were answered to the patient's satisfaction. Excisional debridement down to and including subcutaneous tissue with a number 3 mm dermal curette to the full-thickness ulceration to the right hallux without incident. Predebridement measurement was callus. Postdebridement measurement is 0.5 x 0.4 x 0.1 cm. The right hallux is wide clean and patted dry. Betadine paint and sterile Band-Aid was applied to the right hallux. Orders were given for dressing changes. Patient is currently being booked for outpatient elective surgery to the right great toe for hallux IPJ arthroplasty and delayed primary closure of the full-thickness wound. Risks and benefits test with the patient in detail. Toenails 1 through 5 were debrided down to and including healthy limits removing all subungual debris's with a double-action nail nipper without incident. Patient especially if after procedure Follow-up at the wound care center with Dr. Mcdaniel in 2 week. (2) Chronic painful diabetic polyneuropathy: CODE(S): E11.42 - Type 2 diabetes mellitus with diabetic polyneuropathy (3) Tinea unguium: CODE(S): B35.1 - Tinea unguium
== END 2024-08-03 23:59 | disposition home or self-care (01) ==
LOC: WC 08:15
PROVIDERS: PCP Internal Medicine Infectious Disease; Referring Provider Internal Medicine Infectious Disease; Visit Provider Podiatrist Foot & Ankle Surgery
DX: E11.621 Type 2 diabetes mellitus with foot ulcer (principal); L97.521 Non-pressure chronic ulcer of other part of left foot limited to breakdown of skin; L97.522 Non-pressure chronic ulcer of other part of left foot with fat layer exposed; Z79.4 Long term (current) use of insulin; E11.42 Type 2 diabetes mellitus with diabetic polyneuropathy; M79.89 Other specified soft tissue disorders; F17.200 Nicotine dependence, unspecified, uncomplicated; Z79.82 Long term (current) use of aspirin; Z79.899 Other long term (current) drug therapy
CPT/HCPCS: 11042

== ENCOUNTER 2024-08-29 08:00 | Outpatient (RCR) | payer MEDICARE, MEDICAID, SELFPAY ==
[2024-08-04 02:29] VITALS: BP 151/68; PULSE 69; RESP 18; TEMP 35.8
[2024-08-15 08:11] VITALS: BP 171/78; PULSE 79; RESP 16; TEMP 36.2
--- NOTE | 2024-08-15 12:19 | PCM.WC.PN ---
History of Present Illness Date of Service: 08/15/24 Chief Complaint: Bilateral hallux full-thickness wounds. History of Wound: Chronic hyperkeratotic tissue to the plantar aspect of the hallux digits bilateral with ulceration Progress of Wound: Chronic wound right hallux Subjective Subjective Mr. Levy is a 74-year-old diabetic male presented wound care center today for follow-up evaluation of full-thickness wound to right hallux. Patient has been doing dressing changes per nursing staff with Betadine paint and Band-Aid. He is ready to move forward with surgery. Will need to discuss with POA procedure. He denies trauma. Denies constitutional symptoms. No other pedal complaints at this time. Objective Data Objective Data Vital Signs: Vital Signs Temp Pulse Resp BP O2 Del Method 97.2 F L 79 16 171/78 H Room Air 08/15/24 08:11 08/15/24 08:11 08/15/24 08:11 08/15/24 08:11 08/15/24 08:11 Oxygen Delivery Method Room Air Physical Exam Narrative Vascular: DP and PT pulses are palpable. CFT is brisk. No hair growth is appreciated. Skin temperature and turgor is within normal limits. No erythema. Nonpitting edema to the bilateral lower extremity. Neurological: Light touch intact. Patient does respond to painful stimuli. Dermatological: Full-thickness ulceration to right hallux measuring 0.9 x 0.8 x 0.1 cm. Wound base is granular nature. No sign of infection. Excisional debridement down to and including subcutaneous tissue with a number 3 mm dermal curette to the full-thickness ulceration to the right hallux without incident. Predebridement measurement was callus. Postdebridement measurement is 0.9 x 0.8 x 0.1 cm. Musculoskeletal: Decreased range of motion to the IPJ of the bilateral hallux. Decreased range of motion to first metatarsophalangeal joint bilateral. No pain with calf compression or pain to the full-thickness wounds. Debridement Note Debridement Note Debridement Free Text: Excisional debridement down to and including subcutaneous tissue with a number 3 mm dermal curette to the full-thickness ulceration to the right hallux without incident. Predebridement measurement was callus. Postdebridement measurement is 0.9 x 0.8 x 0.1 cm. Post-Debridement Measurements and Additional Note: Post-Debridement Measurements/Treatment WC - Nurse 1 - General Ulcer Assessment Start: 08/15/24 08:09 Freq: Status: Active Protocol: NARENDRA Activity Type Activity Date Activity User E-sign Co-sign Detail Recorded Client Recorded Date Recorded By Document 08/15/24 08:11 RAE [id number] 08/15/24 08:17 KW 08/15/24 08:11 - Today's Visit Information Type of service Follow-up Visit (Physician/[employer] ) Arrival Mode Wheelchair Accompanied by caregiver Patient Identification Verified (Name & Yes ) Vital Signs Temperature (97.8 F-99.1 F) 97.2 F L Temperature Source Temporal Pulse Rate (60-100) 79 Pulse Location Monitor Respiratory Rate (12-18) 16 Respiratory rate source Observation Oxygen Delivery Method Room Air Blood Pressure (90/60-120/80) 171/78 H Blood Pressure Mean (mm Hg) 109 Source Monitor Position Semi-Fowlers Blood Pressure Location Left Arm History Since Last Visit- (Skip if this is Patient's initial visit) Have you changed medications since your No last visit? Any new allergies or adverse reactions No Had a fall/change in ADL's that may No increase risk of falls Signs or symptoms of abuse and/or No neglect since last visit Have you been in the hospital since your No last visit? Has dressing in place as prescribed Yes Has compression in place as prescribed Yes Has offloadiing in place as prescribed N/A Experienced any changes in pain level or No management Left Footwear Regular Shoe Right Footwear Regular Shoe Pain Scale: 0-10 Numeric Is Patient Pain Free? Yes - Nurse 1 - General Ulcer Measurement Start: 08/15/24 08:09 Freq: Status: Active Protocol: Activity Type Activity Date Activity User E-sign Co-sign Detail Recorded Client Recorded Date Recorded By Document 08/15/24 08:11 KW [id number] 08/15/24 08:17 KW 08/15/24 08:11 Wound Center Nurse 1 #1- R HALLUX -Current Size (cm) - Length 0.1 -Current Size (cm) - Width 0.1 -Current Size (cm) - Depth 0 -Total Square Cm 0.01 -Exudate Amt None Present -Texture (Halley-wound Skin Appearance) Callus -Moisture (Halley-wound Skin Appearance) Assessed -Color (Halley-wound Skin Appearance) Assessed -Temperature (Halley-wound Skin No Abnormality Appearance) (Pt Warm) -Tenderness on Palpation (Halley-wound No Skin Appearance) -Ulcer Cleansing Rinsed/ Irrigated with Saline -Foul Odor after Cleansing No -Anesthetic Used 5% Lidocaine Gel -Wound Comment(s) very callused - Nurse 2 - General Ulcer CM Notes Start: 08/15/24 08:09 Freq: Status: Active Protocol: Activity Type Activity Date Activity User E-sign Co-sign Detail Recorded Client Recorded Date Recorded By Document 08/15/24 08:44 [facility] [id number] 08/15/24 08:49 [facility] 08/15/24 08:44 Wound Center Nurse 2 -Time 08:44 -Correct Patient Yes -Correct Side, Site, Position Yes -Correct Procedure Yes -Procedure Performed Yes -Type of Procedure Debridement -Clinical Debridement Subcutaneous -Tissue Removed Subcutaneous -Post Debridement (cm) - Length 0.9 -Post Debridement (cm) - Width 0.8 -Post Debridement (cm) - Depth 0.1 -Total Square (Post) (cm) 0.72 -Area of Debridement (cm) - Length 0.9 -Area of Debridement (cm) - Width 0.8 -Total Square (Area) (cm) 0.72 -Tunneling No -Undermining/Tunneling No -Circular Undermining No -Wound/Ulcer Outcome Not Healed -Ulcer Cleansing Rinsed/ Irrigated with Saline -Foul Odor after Cleansing No -Bioengineered Tissue No -Bleeding Controlled with Pressure -Treatment Response Procedure Tolerated Well -Debridement - Subq, 1st 20sq cm Yes Pain Scale: 0-10 Numeric Is Patient Pain Free? Yes - Nurse 3 - General Ulcer D/C NN Start: 08/15/24 08:09 Freq: Status: Active Protocol: Activity Type Activity Date Activity User E-sign Co-sign Detail Recorded Client Recorded Date Recorded By Document 08/15/24 09:03 [id number] 08/15/24 09:03 08/15/24 09:03 Wound Care Center Nurse 3 #1- R HALLUX -Other Dressing betadine with banaide Right -Tubular Bandage Single Layer -Size of Tubigrip Used Size E -Size E ($) 1 Left -Tubular Bandage Single Layer -Size of Tubigrip Used Size E -Size E ($) 1 Pain Scale: 0-10 Numeric Is Patient Pain Free? Yes WC - Visit Discharge Discharge Condition Stable Ambulatory Status Wheelchair Medication Reconcilliation completed & No provided to patient/care provider Clinical Summary of Care Provided Yes Assessment/Plan Assessment/Plan (1) Non-pressure chronic ulcer of other part of right foot with fat layer exposed: CODE(S): L97.512 - Non-pressure chronic ulcer of other part of right foot with fat layer exposed PLAN: Patient was examined and evaluated. All findings were discussed with the patient. All questions were answered to the patient's satisfaction. Excisional debridement down to and including subcutaneous tissue with a number 3 mm dermal curette to the full-thickness ulceration to the right hallux without incident. Predebridement measurement was callus. Postdebridement measurement is 0.9 x 0.8 x 0.1 cm. The right hallux is likely and patted dry. Betadine paint and Band-Aid were applied. Will reach out to the POA regarding procedure in the upcoming weeks. Patient will continue to monitor his feet twice per day. Follow-up at the wound care center with Dr. Mcdaniel in 1 week.
[2024-08-29 08:10] VITALS: BP 140/70; PULSE 68; RESP 18; TEMP 36.1
--- NOTE | 2024-08-29 09:17 | PCM.WC.PN ---
History of Present Illness Date of Service: 08/29/24 Chief Complaint: Bilateral hallux full-thickness wounds. History of Wound: Chronic hyperkeratotic tissue to the plantar aspect of the hallux digits bilateral with ulceration Progress of Wound: Chronic calluses and ulceration to the right and left hallux. Subjective Subjective Mr. Ruiz is a 74-year-old male presenting to wound care center today follow-up evaluation of chronic calluses and full-thickness wounds to the bilateral hallux digits. The patient has been on doxycycline as I did a video [id number] with the patient and caregiver last week. They admit improvement to the erythema and pain. We are planning for surgical intervention to the right great toe in my [place] on 09/03/2024. This will be a local case due to the patient having seizures with general anesthesia. They have been doing dressing changes with Betadine paint and Band-Aids. Things are stable at this time. Denies trauma. Denies constitutional symptoms. Other pedal complaints at this time. Objective Data Objective Data Vital Signs: Vital Signs Temp Pulse Resp BP O2 Del Method 97.0 F L 68 18 140/70 H Room Air 08/29/24 08:10 08/29/24 08:10 08/29/24 08:10 08/29/24 08:10 08/29/24 08:10 Oxygen Delivery Method Room Air Physical Exam Narrative Vascular: DP and PT pulse are palpable. CFT is brisk. Nonpitting edema appreciated by the lower extremity. Skin temperature great is warm to warm from proximal ankles to distal digit bilateral. Blanchable erythema appreciated to the bilateral hallux digits. Neurological: Light touch is intact. Patient does respond to painful stimuli. Dermatological: Full-thickness ulceration after debridement to the right hallux measuring 1.3 x 1.5 x 0.1 cm. Full-thickness ulceration after debridement to the left hallux measuring 2.5 x 2.5 x 0.1 cm. Wound base is granular nature on both sides with evidence of maceration to both ulcerations. Mild malodor. Negative probe to bone. No drainage. Excisional debridement down to and including subcutaneous tissue of the right hallux full-thickness wound without incident using a #15 blade. Predebridement measurement was callus. Postdebridement measurement is 1.3 x 1.5 x 0.1 cm. Excisional debridement down to and including subcutaneous tissue of the left hallux full-thickness wound without incident using a #15 blade. Predebridement measurement was callus. Post right measurement was 2.5 x 2.5 x 0.1 cm. Musculoskeletal: Limited range of motion to the IPJ of the bilateral hallux. Mild pain on palpation to the full-thickness wound to the bilateral hallux digits. No pain with calf pressure. Debridement Note Debridement Note Debridement Free Text: Excisional debridement down to and including subcutaneous tissue of the right hallux full-thickness wound without incident using a #15 blade. Predebridement measurement was callus. Postdebridement measurement is 1.3 x 1.5 x 0.1 cm. Excisional debridement down to and including subcutaneous tissue of the left hallux full-thickness wound without incident using a #15 blade. Predebridement measurement was callus. Post right measurement was 2.5 x 2.5 x 0.1 cm. Post-Debridement Measurements and Additional Note: Post-Debridement Measurements/Treatment - Nurse 1 - General Ulcer Assessment Start: 08/15/24 08:09 Freq: Status: Active Protocol: WALDEMAR.JOON Activity Type Activity Date Activity User E-sign Co-sign Detail Recorded Client Recorded Date Recorded By Document 08/15/24 08:11 KW [id number] 08/15/24 08:17 KW Document 08/29/24 08:10 KW [id number] 08/29/24 08:16 KW 08/15/24 08/29/24 08:11 08:10 - Today's Visit Information Type of service Follow-up Visit Follow-up Visit (Physician/[employer] (Physician/[employer] SAL[employer] ENGINEER ) ) Arrival Mode Wheelchair Ambulatory Accompanied by caregiver nurse Patient Identification Verified (Name & Yes Yes ) Vital Signs Temperature (97.8 F-99.1 F) 97.2 F L 97.0 F L Temperature Source Temporal Temporal Pulse Rate (60-100) 79 68 Pulse Location Monitor Monitor Respiratory Rate (12-18) 16 18 Respiratory rate source Observation Observation Oxygen Delivery Method Room Air Room Air Blood Pressure (90/60-120/80) 171/78 H 140/70 H Blood Pressure Mean (mm Hg) 109 93 Source Monitor Monitor Position Semi-Fowlers Semi-Fowlers Blood Pressure Location Left Arm Left Arm History Since Last Visit- (Skip if this is Patient's initial visit) Have you changed medications since your No No last visit? Any new allergies or adverse reactions No No Had a fall/change in ADL's that may No No increase risk of falls Signs or symptoms of abuse and/or No No neglect since last visit Have you been in the hospital since your No No last visit? Has dressing in place as prescribed Yes Yes Has compression in place as prescribed Yes Yes Has offloadiing in place as prescribed N/A N/A Experienced any changes in pain level or No No management Left Footwear Regular Shoe Regular Shoe Right Footwear Regular Shoe Regular Shoe Pain Scale: 0-10 Numeric Is Patient Pain Free? Yes Yes WC - Nurse 1 - General Ulcer Measurement Start: 08/15/24 08:09 Freq: Status: Active Protocol: Activity Type Activity Date Activity User E-sign Co-sign Detail Recorded Client Recorded Date Recorded By Document 08/15/24 08:11 KW [id number] 08/15/24 08:17 KW Document 08/29/24 08:10 KW [id number] 08/29/24 08:16 KW 08/15/24 08/29/24 08:11 08:10 Wound Center Nurse 1 #1- R HALLUX -Current Size (cm) - Length 0.1 0.1 -Current Size (cm) - Width 0.1 0.1 -Current Size (cm) - Depth 0 0 -Total Square Cm 0.01 0.01 -Date of Last Picture (Recall this 08/29/24 field) -Exudate Amt None Present None Present -Wound Margin Indistinct, Non -Visible -Texture (Halley-wound Skin Appearance) Callus Assessed,Callus -Moisture (Halley-wound Skin Appearance) Assessed Assessed -Color (Halley-wound Skin Appearance) Assessed Assessed, Ecchymosis -Temperature (Halley-wound Skin No Abnormality No Abnormality Appearance) (Pt Warm) (Pt Warm) -Tenderness on Palpation (Halley-wound No No Skin Appearance) -Ulcer Cleansing Rinsed/ Rinsed/ Irrigated with Irrigated with Saline Saline -Foul Odor after Cleansing No No -Anesthetic Used 5% Lidocaine 5% Lidocaine Gel Gel -Wound Comment(s) very callused WC - Nurse 2 - General Ulcer CM Notes Start: 08/15/24 08:09 Freq: Status: Active Protocol: Activity Type Activity Date Activity User E-sign Co-sign Detail Recorded Client Recorded Date Recorded By Document 08/15/24 08:44 [facility] [id number] 08/15/24 08:49 [facility] Document 08/29/24 08:38 [id number] 08/29/24 08:41 JF 08/15/24 08/29/24 08:44 08:38 Wound Center Nurse 2 #2- L HALLUX -Time 08:39 -Correct Patient Yes -Correct Side, Site, Position Yes -Correct Procedure Yes -Procedure Performed Yes -Type of Procedure Debridement -Clinical Debridement Subcutaneous -Tissue Removed Subcutaneous -Post Debridement (cm) - Length 2.5 -Post Debridement (cm) - Width 2.5 -Post Debridement (cm) - Depth 0.1 -Total Square (Post) (cm) 6.25 -Area of Debridement (cm) - Length 2.5 -Area of Debridement (cm) - Width 2.5 -Total Square (Area) (cm) 6.25 -Tunneling No -Undermining/Tunneling No -Circular Undermining No -Wound/Ulcer Outcome Not Healed -Ulcer Cleansing Rinsed/ Irrigated with Saline -Foul Odor after Cleansing No -Bioengineered Tissue No -Bleeding Controlled with Pressure -Treatment Response Procedure Tolerated Well -Offloading No -Debridement - Subq, 1st 20sq cm Yes #1- R HALLUX -Time 08:44 08:39 -Correct Patient Yes Yes -Correct Side, Site, Position Yes Yes -Correct Procedure Yes Yes -Procedure Performed Yes Yes -Type of Procedure Debridement Debridement -Clinical Debridement Subcutaneous Subcutaneous -Tissue Removed Subcutaneous Subcutaneous -Post Debridement (cm) - Length 0.9 1.3 -Post Debridement (cm) - Width 0.8 1.5 -Post Debridement (cm) - Depth 0.1 0.1 -Total Square (Post) (cm) 0.72 1.95 -Area of Debridement (cm) - Length 0.9 1.3 -Area of Debridement (cm) - Width 0.8 1.5 -Total Square (Area) (cm) 0.72 1.95 -Tunneling No No -Undermining/Tunneling No No -Circular Undermining No No -Wound/Ulcer Outcome Not Healed Not Healed -Ulcer Cleansing Rinsed/ Rinsed/ Irrigated with Irrigated with Saline Saline -Foul Odor after Cleansing No No -Bioengineered Tissue No No -Bleeding Controlled with Pressure Pressure -Treatment Response Procedure Procedure Tolerated Well Tolerated Well -Offloading No -Debridement - Subq, 1st 20sq cm Yes No Pain Scale: 0-10 Numeric Is Patient Pain Free? Yes Yes - Nurse 3 - General Ulcer D/C NN Start: 08/15/24 08:09 Freq: Status: Active Protocol: Activity Type Activity Date Activity User E-sign Co-sign Detail Recorded Client Recorded Date Recorded By Document 08/15/24 09:03 KW [id number] 08/15/24 09:03 KW Document 08/29/24 08:53 RB [id number] 08/29/24 08:54 RB 08/15/24 08/29/24 09:03 08:53 Wound Care Center Nurse 3 #1- R HALLUX -Other Dressing betadine with banaide Right -Tubular Bandage Single Layer -Size of Tubigrip Used Size E -Size E ($) 1 Left -Tubular Bandage Single Layer -Size of Tubigrip Used Size E -Size E ($) 1 Pain Scale: 0-10 Numeric Is Patient Pain Free? Yes Yes Teaching: Wound Center Compression Wraps & Stockings -Person Taught Patient,Primary Caregiver -Teaching Method Discussion, Demonstration -Response to teaching Verbalize Understanding WC - Visit Discharge Discharge Condition Stable Stable Ambulatory Status Wheelchair Ambulatory Transportation Private Auto Medication Reconcilliation completed & No No provided to patient/care provider Clinical Summary of Care Provided Yes Yes #2- L HALLUX -Other Dressing betadine gauze -Primary Dressing Covered/Secured with Dry Gauze, Secured with Tape #1- R HALLUX -Other Dressing betadine gauze -Primary Dressing Covered/Secured with Dry Gauze, Secured with Tape Right -Tubular Bandage Single Layer -Size of Tubigrip Used Size E -Size E ($) 1 Left -Tubular Bandage Single Layer -Size of Tubigrip Used Size E -Size E ($) 1 Treatment Response Procedure Tolerated Well Assessment/Plan Assessment/Plan (1) Non-pressure chronic ulcer of other part of left foot with fat layer exposed: CODE(S): L97.522 - Non-pressure chronic ulcer of other part of left foot with fat layer exposed PLAN: Patient was examined and evaluated. All findings were discussed with the patient. All questions were answered to the patient's satisfaction. Excisional debridement down to and including subcutaneous tissue of the right hallux full-thickness wound without incident using a #15 blade. Predebridement measurement was callus. Postdebridement measurement is 1.3 x 1.5 x 0.1 cm. Excisional debridement down to and including subcutaneous tissue of the left hallux full-thickness wound without incident using a #15 blade. Predebridement measurement was callus. Post right measurement was 2.5 x 2.5 x 0.1 cm. Bilateral hallux's were wiped clean and patted dry. The area was dressed with Betadine and sterile Band-Aid. [facility]. All risk and benefits were discussed with the patient, the nurse present as well as the POA over the phone this morning. All risk and benefits were discussed with them in great detail. They are understanding of everything and will be available for consent signing on 09/04/2019 5 in the morning at [facility] for surgical intervention to the right foot. Follow-up at the wound care center with Dr. Mcdaniel in 1 week. (2) Non-pressure chronic ulcer of other part of right foot with fat layer exposed: CODE(S): L97.512 - Non-pressure chronic ulcer of other part of right foot with fat layer exposed (3) Other specified peripheral vascular diseases: CODE(S): I73.89 - Other specified peripheral vascular diseases
--- NOTE | 2024-08-29 16:11 | WC ---
PHOTO 08/29/24 RIGHT HALLUX
--- NOTE | 2024-08-29 16:11 | WC ---
PHOTO 08/29/24 LEFT HALLUX
== END 2024-08-31 23:59 | disposition home or self-care (01) ==
LOC: WC 08:00
PROVIDERS: PCP Internal Medicine Infectious Disease; Referring Provider Internal Medicine Infectious Disease; Visit Provider Podiatrist Foot & Ankle Surgery
DX: L97.512 Non-pressure chronic ulcer of other part of right foot with fat layer exposed (principal); L97.522 Non-pressure chronic ulcer of other part of left foot with fat layer exposed; Z79.4 Long term (current) use of insulin; I73.89 Other specified peripheral vascular diseases; Z79.82 Long term (current) use of aspirin; Z79.899 Other long term (current) drug therapy
CPT/HCPCS: 11042

== ENCOUNTER 2024-09-19 08:15 | Outpatient (RCR) | payer MEDICARE, MEDICAID, SELFPAY ==
[2024-09-01 02:33] VITALS: BP 140/70; PULSE 68; RESP 18; TEMP 36.1
[2024-09-05 08:12] VITALS: BP 154/57; PULSE 77; RESP 18; TEMP 35.9
--- NOTE | 2024-09-05 09:16 | PN.PCM_ITS ---
History of Present Illness Date of Service: 09/05/24 Chief Complaint: Bilateral hallux full-thickness wounds. History of Wound: Full-thickness wound status post hallux arthroplasty with delayed primary closure to the right great toe. Full-thickness wound stable left hallux Progress of Wound: Status post right hallux arthroplasty with delayed primary closure. Full- thickness wound stable chronic left great toe Subjective Subjective Mr. Ruiz is a 74-year-old diabetic male presenting the wound care center today for follow-up evaluation of the right hallux status post IPJ arthroplasty with delayed primary closure as well as full-thickness wound to left hallux. He is left his postoperative dressing clean dry and intact. He rates his pain as 1 out of 10 on the pain scale. He does take the pain medication as needed. Dressing changes have been done at the senior living with the left great toe. He denies any trauma. Denies constitutional symptoms. No other pedal complaints at this time. Objective Data Objective Data Vital Signs: Vital Signs Temp Pulse Resp BP O2 Del Method 96.7 F L 77 18 154/57 H Room Air 09/05/24 08:12 09/05/24 08:12 09/05/24 08:12 09/05/24 08:12 09/05/24 08:12 Oxygen Delivery Method Room Air Physical Exam Narrative Vascular: DP and PT pulse are palpable. Evidence of nonpitting edema appreciated to the right hallux. Skin temp great is warm to warm from proximal ankle and distal digit bilateral. Evidence of ecchymosis and erythema secondary to surgical procedure to the right hallux. No erythema to the left hallux. Neurological: Light touch intact. Protective station is diminished. Dermatological: Incisions well coapted with suture to the right hallux. Evidence of full-thickness wound to the left hallux measuring 0.7 x 0.5 x 0.1 cm. Ecchymosis and blanchable erythema to the right great toe. No drainage or sign of infection. Excisional debridement down to and including subcutaneous tissue with a number 3 mm dermal curette to the left hallux full-thickness wound without incident. Predebridement measurement was callus. Postdebridement measurement is 0.7 x 0.5 x 0.1 cm. Musculoskeletal: No pain on palpation to the full-thickness wound to the left hallux. No pain on palpation to the incision of the right hallux. No pain with calf pressure. Debridement Note Debridement Note Debridement Free Text: Excisional debridement down to and including subcutaneous tissue with a number 3 mm dermal curette to the left hallux full-thickness wound without incident. Predebridement measurement was callus. Postdebridement measurement is 0.7 x 0.5 x 0.1 cm. Post-Debridement Measurements and Additional Note: Post-Debridement Measurements/Treatment - Nurse 1 - General Ulcer Assessment Start: 09/05/24 08:12 Freq: Status: Active Protocol: NARENDRA Activity Type Activity Date Activity User E-sign Co-sign Detail Recorded Client Recorded Date Recorded By Document 09/05/24 08:12 KW [id number] 09/05/24 08:15 KW 09/05/24 08:12 - Today's Visit Information Type of service Initial Visit Arrival Mode Ambulatory Accompanied by nurse Patient Identification Verified (Name & Yes ) Vital Signs Temperature (97.8 F-99.1 F) 96.7 F L Temperature Source Temporal Pulse Rate (60-100) 77 Pulse Location Monitor Respiratory Rate (12-18) 18 Respiratory rate source Observation Oxygen Delivery Method Room Air Blood Pressure (90/60-120/80) 154/57 H Blood Pressure Mean (mm Hg) 89 Source Monitor Position Semi-Fowlers Blood Pressure Location Right Arm History Since Last Visit- (Skip if this is Patient's initial visit) Have you changed medications since your No last visit? Any new allergies or adverse reactions No Had a fall/change in ADL's that may No increase risk of falls Signs or symptoms of abuse and/or No neglect since last visit Have you been in the hospital since your No last visit? Has dressing in place as prescribed Yes Has compression in place as prescribed Yes Has offloadiing in place as prescribed Yes Experienced any changes in pain level or No management Left Footwear Regular Shoe Right Footwear Surgical Shoe with pressure relief insole Pain Scale: 0-10 Numeric Is Patient Pain Free? Yes - Nurse 1 - General Ulcer Measurement Start: 09/05/24 08:12 Freq: Status: Active Protocol: Activity Type Activity Date Activity User E-sign Co-sign Detail Recorded Client Recorded Date Recorded By Document 09/05/24 08:12 KW [id number] 09/05/24 08:15 KW 09/05/24 08:12 Wound Center Nurse 1 #2- L HALLUX -Current Size (cm) - Length 0.4 -Current Size (cm) - Width 0.2 -Current Size (cm) - Depth 0.1 -Total Square Cm 0.08 -Date of Last Picture (Recall this 09/05/24 field) -Epithelialization Medium 34-66% -Exudate Amt None Present -Wound Margin Distinct, Outline Attached -Texture (Halley-wound Skin Appearance) Assessed,Callus -Moisture (Halley-wound Skin Appearance) Assessed -Color (Halley-wound Skin Appearance) Assessed -Temperature (Halley-wound Skin No Abnormality Appearance) (Pt Warm) -Tenderness on Palpation (Halley-wound No Skin Appearance) -Ulcer Cleansing Rinsed/ Irrigated with Saline -Foul Odor after Cleansing No -Anesthetic Used 5% Lidocaine Gel #1- R HALLUX -Exudate Amt Medium -Exudate Type Sanguineous -Wound Margin Flat & Intact -Texture (Halley-wound Skin Appearance) Assessed,Callus -Moisture (Halley-wound Skin Appearance) Assessed -Color (Halley-wound Skin Appearance) Assessed -Temperature (Halley-wound Skin No Abnormality Appearance) (Pt Warm) -Tenderness on Palpation (Halley-wound No Skin Appearance) -Foul Odor after Cleansing No -Wound Comment(s) 7 sutures intact, two days post op WC - Nurse 2 - General Ulcer CM Notes Start: 09/05/24 08:12 Freq: Status: Active Protocol: Activity Type Activity Date Activity User E-sign Co-sign Detail Recorded Client Recorded Date Recorded By Document 09/05/24 08:32 ANTHONY [id number] 09/05/24 08:36 ANTHONY 09/05/24 08:32 Wound Center Nurse 2 #2- L HALLUX -Time 08:33 -Correct Patient Yes -Correct Side, Site, Position Yes -Correct Procedure Yes -Procedure Performed Yes -Type of Procedure Debridement -Clinical Debridement Subcutaneous -Tissue Removed Subcutaneous -Post Debridement (cm) - Length 0.7 -Post Debridement (cm) - Width 0.5 -Post Debridement (cm) - Depth 0.1 -Total Square (Post) (cm) 0.35 -Area of Debridement (cm) - Length 0.7 -Area of Debridement (cm) - Width 0.5 -Total Square (Area) (cm) 0.35 -Tunneling No -Undermining/Tunneling No -Circular Undermining No -Wound/Ulcer Outcome Not Healed -Ulcer Cleansing Rinsed/ Irrigated with Saline -Foul Odor after Cleansing No -Bioengineered Tissue No -Bleeding Controlled with Pressure -Treatment Response Procedure Tolerated Well -Offloading Yes -Type of Offloading Surgical Shoe -Debridement - Subq, 1st 20sq cm Yes #1- R HALLUX -Correct Patient Yes -Correct Side, Site, Position No -Correct Procedure No -Procedure Performed No -Wound/Ulcer Outcome Healed- Surgical Closure Pain Scale: 0-10 Numeric Is Patient Pain Free? Yes WC - Nurse 3 - General Ulcer D/C NN Start: 09/05/24 08:12 Freq: Status: Active Protocol: Activity Type Activity Date Activity User E-sign Co-sign Detail Recorded Client Recorded Date Recorded By Document 09/05/24 08:58 TN [id number] 09/05/24 09:00 TN 09/05/24 08:58 Wound Care Center Nurse 3 #2- L HALLUX -Other Dressing betadine -Primary Dressing Covered/Secured with Dry Gauze,Dry Gauze & Roll Gauze,Secured with Tape #1- R HALLUX -Other Dressing betadine, adaptic -Primary Dressing Covered/Secured with Dry Gauze,Dry Gauze & Roll Gauze,Secured with Tape LLE -Tubular Bandage Single Layer -Size of Tubigrip Used Size E -Size E ($) 1 RLE -Compression Wrap Maurisio Wrap -Tubular Bandage Single Layer -Size of Tubigrip Used Size E -Size E ($) 1 Pain Scale: 0-10 Numeric Is Patient Pain Free? Yes Assessment/Plan Assessment/Plan (1) Non-pressure chronic ulcer of other part of right foot with fat layer exposed: CODE(S): L97.512 - Non-pressure chronic ulcer of other part of right foot with fat layer exposed PLAN: Patient was examined and evaluated. All findings were discussed with the patient. All questions were answered to the patient's satisfaction. Excisional debridement down to and including subcutaneous tissue with a number 3 mm dermal curette to the left hallux full-thickness wound without incident. Predebridement measurement was callus. Postdebridement measurement is 0.7 x 0.5 x 0.1 cm. Left foot was wiped clean and patted dry, the full-thickness wound was dressed with Betadine paint and sterile Band-Aid. The patient is status post right hallux interphalangeal joint arthroplasty with delayed primary closure to the right great toe. The patient shows evidence of postoperative changes with evidence of swelling, blanchable erythema as well as ecchymosis since the patient is approximately 48 hours out from surgery. He has no pain. There is no concern for infection, however the patient will be placed on Augmentin 875 twice daily for prophylaxis for 2 weeks. The incision was joycelyn ssed with Betadine soaked Adaptic, dry sterile dressing compression wrap. Dressing to be left clean dry and intact. I did educate the caring staff for the patient about signs and symptoms of infection. They are understanding of this. Follow-up at the wound care center with Dr. Mcdaniel in 1 week. (2) Non-pressure chronic ulcer of other part of left foot with fat layer exposed: CODE(S): L97.522 - Non-pressure chronic ulcer of other part of left foot with fat layer exposed
--- NOTE | 2024-09-05 14:44 | WC ---
PHOTO 09/05/24 RIGHT HALLUX POST OP
--- NOTE | 2024-09-05 14:46 | WC ---
PHOTO 09/05/24 LEFT HALLUX
[2024-09-12 08:24] VITALS: BP 146/73; PULSE 72; RESP 18
--- NOTE | 2024-09-12 09:29 | PCM.WC.PN ---
History of Present Illness Date of Service: 09/05/24 Chief Complaint: Bilateral hallux full-thickness wounds. History of Wound: Full-thickness wound status post hallux arthroplasty with delayed primary closure to the right great toe. Full-thickness wound stable left hallux Progress of Wound: Status post right hallux arthroplasty with delayed primary closure. Full-thickness wound stable chronic left great toe Subjective Subjective Mr. Scherer is a 74-year-old male presenting to clinic today follow-up evaluation of right hallux arthroplasty with delayed primary closure of full-thickness wound to the right hallux. Patient is doing well. He is getting dressing changes per nursing facility and ambulating as tolerated in surgical shoe. His erythema has improved. He does have a new wound to the dorsal aspect of the left hallux with no treatment thus far. Last week the caregiver admitted that he urine was leaking from his catheter and got on his left foot dressing which has been changed. Patient is taking antibiotics that were prescribed last week as written. He has no complications with his antibiotics. He has no pain to the right foot or left foot. Denies trauma. Denies constitutional symptoms. No other pedal complaints at this time. Objective Data Objective Data Vital Signs: Vital Signs Temp Pulse Resp BP O2 Del Method 96.7 F L 72 18 146/73 H Room Air 09/05/24 08:12 09/12/24 08:24 09/12/24 08:24 09/12/24 08:24 09/12/24 08:24 Oxygen Delivery Method Room Air Physical Exam Narrative Vascular: DP and PT pulse are palpable. Evidence of nonpitting edema appreciated to the right hallux. Skin temp great is warm to warm from proximal ankle and distal digit bilateral. Improved ecchymosis and erythema secondary to surgical procedure to the right hallux. Blanchable erythema to the left hallux. Neurological: Light touch intact. Protective station is diminished. Dermatological: Incisions well coapted with suture to the right hallux. Evidence of full-thickness wound to the left hallux measuring plantarly 0.7 x 0.5 x 0.1 cm, dorsally measuring 1.0 x 1.8 x 0.1 cm. Improved, ecchymosis and blanchable erythema to the right great toe. No drainage or sign of infection. Excisional debridement down to and including subcutaneous tissue with a number 3 mm dermal curette to the left hallux full-thickness wound without incident. Predebridement measurement was callus. Postdebridement measurement is 0.7 x 0.5 x 0.1 cm. Excisional debridement down to and including subcutaneous tissue with a number 3 mm dermal curette to left hallux dorsal full-thickness wound without incident. Predebridement measurement was 0.8 x 1.5 x 0.1 cm. Postdebridement measurement is 1.0 x 1.8 x 0.1 cm. Musculoskeletal: No pain on palpation to the full-thickness wounds to the left hallux. No pain on palpation to the incision of the right hallux. No pain with calf pressure. Debridement Note Debridement Note Debridement Free Text: Excisional debridement down to and including subcutaneous tissue with a number 3 mm dermal curette to the left hallux full-thickness wound without incident. Predebridement measurement was callus. Postdebridement measurement is 0.7 x 0.5 x 0.1 cm. Excisional debridement down to and including subcutaneous tissue with a number 3 mm dermal curette to left hallux dorsal full-thickness wound without incident. Predebridement measurement was 0.8 x 1.5 x 0.1 cm. Postdebridement measurement is 1.0 x 1.8 x 0.1 cm. 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 ) Arrival Mode Ambulatory Ambulatory, Wheelchair Transfer Assistance None Accompanied by nurse Patient Identification Verified (Name & Yes Yes ) Patient Requires Transmission-Based No Precautions Vital Signs Temperature (97.8 F-99.1 F) 96.7 F L Temperature Source Temporal Pulse Rate (60-100) 77 72 Pulse Location Monitor Monitor Respiratory Rate (12-18) 18 18 Respiratory rate source Observation Observation Oxygen Delivery Method Room Air Room Air Blood Pressure (90/60-120/80) 154/57 H 146/73 H Blood Pressure Mean (mm Hg) 89 97 Source Monitor Monitor Position Semi-Fowlers Sitting Blood Pressure Location Right Arm Left Arm History Since Last Visit- (Skip if this is Patient's initial visit) Have you changed medications since your No No last visit? Any new allergies or adverse reactions No No Had a fall/change in ADL's that may No No increase risk of falls Signs or symptoms of abuse and/or No No neglect since last visit Have you been in the hospital since your No No last visit? Has dressing in place as prescribed Yes Yes Has compression in place as prescribed Yes No Has offloadiing in place as prescribed Yes Yes Experienced any changes in pain level or No No management Left Footwear Regular Shoe Regular Shoe Right Footwear Surgical Shoe Surgical Shoe with pressure with pressure relief insole relief insole Pain Scale: 0-10 Numeric Is Patient Pain Free? Yes Yes WC - Nurse 1 - General Ulcer Measurement Start: 09/05/24 08:12 Freq: Status: Active Protocol: Activity Type Activity Date Activity User E-sign Co-sign Detail Recorded Client Recorded Date Recorded By Document 09/05/24 08:12 KW [id number] 09/05/24 08:15 KW Document 09/12/24 08:24 [id number] 09/12/24 08:30 GM 09/05/24 09/12/24 08:12 08:24 Wound Center Nurse 1 #2- L HALLUX plantar -Current Size (cm) - Length 0.4 0.5 -Current Size (cm) - Width 0.2 0.5 -Current Size (cm) - Depth 0.1 0.1 -Total Square Cm 0.08 0.25 -Date of Last Picture (Recall this 09/05/24 field) -Photo Taken No -Epithelialization Medium 34-66% None Present -Tunneling No -Undermining/Tunneling No -Circular Undermining No -Change in Wound Grade/Stage No -Exudate Amt None Present None Present -Wound Margin Distinct, Flat & Intact Outline Attached -Granulation Amt Small (1-33%) -Slough/Fibrin No -Texture (Halley-wound Skin Appearance) Assessed,Callus Assessed -Moisture (Halley-wound Skin Appearance) Assessed Assessed -Color (Halley-wound Skin Appearance) Assessed Assessed -Temperature (Halley-wound Skin No Abnormality No Abnormality Appearance) (Pt Warm) (Pt Warm) -Tenderness on Palpation (Halley-wound No No Skin Appearance) -Ulcer Cleansing Rinsed/ Soap and Water Irrigated with Saline -Foul Odor after Cleansing No No -Anesthetic Used 5% Lidocaine 5% Lidocaine Gel Gel #1- R HALLUX -Combined with other wound No -Current Size (cm) - Length 0.1 -Current Size (cm) - Width 0.1 -Current Size (cm) - Depth 0.1 -Total Square Cm 0.01 -Photo Taken No -Exudate Amt Medium -Exudate Type Sanguineous -Wound Margin Flat & Intact -Texture (Halley-wound Skin Appearance) Assessed,Callus Assessed -Moisture (Halley-wound Skin Appearance) Assessed Assessed -Color (Halley-wound Skin Appearance) Assessed Assessed -Temperature (Halley-wound Skin No Abnormality No Abnormality Appearance) (Pt Warm) (Pt Warm) -Tenderness on Palpation (Halley-wound No Skin Appearance) -Ulcer Cleansing Soap and Water -Foul Odor after Cleansing No No -Wound Comment(s) 7 sutures sutures intact intact, two days post op Lower Limb Edema Present No Point of measurement (cm from the medial 38.5 instep) Point of Measurement (cm from the medial 23.5 instep) Left Calf (cm) 38.5 Left Ankle (cm) 25.2 WC - Nurse 2 - General Ulcer CM Notes Start: 09/05/24 08:12 Freq: Status: Active Protocol: Activity Type Activity Date Activity User E-sign Co-sign Detail Recorded Client Recorded Date Recorded By Document 09/05/24 08:32 [id number] 09/05/24 08:36 Document 09/12/24 08:44 [id number] 09/12/24 08:49 09/05/24 09/12/24 08:32 08:44 Wound Center Nurse 2 3-left dorsal hallux -Time 08:47 -Correct Patient Yes -Correct Side, Site, Position Yes -Correct Procedure Yes -Procedure Performed Yes -Type of Procedure Debridement -Clinical Debridement Subcutaneous -Tissue Removed Subcutaneous -Post Debridement (cm) - Length 1 -Post Debridement (cm) - Width 1.8 -Post Debridement (cm) - Depth 0.1 -Total Square (Post) (cm) 1.8 -Area of Debridement (cm) - Length 1.0 -Area of Debridement (cm) - Width 1.8 -Total Square (Area) (cm) 1.80 -Tunneling No -Undermining/Tunneling No -Circular Undermining No -Wound/Ulcer Outcome Not Healed -Ulcer Cleansing Rinsed/ Irrigated with Saline -Foul Odor after Cleansing No -Bioengineered Tissue No -Bleeding Controlled with Pressure -Treatment Response Procedure Tolerated Well -Offloading Yes -Type of Offloading Surgical Shoe -Debridement - Subq, 20sq cm Yes #2- L HALLUX plantar -Time 08:33 08:45 -Correct Patient Yes Yes -Correct Side, Site, Position Yes Yes -Correct Procedure Yes Yes -Procedure Performed Yes Yes -Type of Procedure Debridement Debridement -Clinical Debridement Subcutaneous Subcutaneous -Tissue Removed Subcutaneous Subcutaneous -Post Debridement (cm) - Length 0.7 0.7 -Post Debridement (cm) - Width 0.5 0.5 -Post Debridement (cm) - Depth 0.1 0.1 -Total Square (Post) (cm) 0.35 0.35 -Area of Debridement (cm) - Length 0.7 0.7 -Area of Debridement (cm) - Width 0.5 0.5 -Total Square (Area) (cm) 0.35 0.35 -Tunneling No No -Undermining/Tunneling No No -Circular Undermining No No -Wound/Ulcer Outcome Not Healed Not Healed -Ulcer Cleansing Rinsed/ Rinsed/ Irrigated with Irrigated with Saline Saline -Foul Odor after Cleansing No No -Bioengineered Tissue No No -Bleeding Controlled with Pressure Pressure -Treatment Response Procedure Procedure Tolerated Well Tolerated Well -Offloading Yes Yes -Type of Offloading Surgical Shoe Surgical Shoe -Debridement - Subq, 20sq cm Yes No #1- R HALLUX -Correct Patient Yes No -Correct Side, Site, Position No No -Correct Procedure No No -Procedure Performed No No -Post Debridement (cm) - Length 0 -Post Debridement (cm) - Width 0 -Post Debridement (cm) - Depth 0 -Total Square (Post) (cm) 0 -Area of Debridement (cm) - Length 0 -Area of Debridement (cm) - Width 0 -Total Square (Area) (cm) 0 -Wound/Ulcer Outcome Healed- Healed- Surgical Surgical Closure Closure Pain Scale: 0-10 Numeric Is Patient Pain Free? Yes Yes - Nurse 3 - General Ulcer D/C NN Start: 09/05/24 08:12 Freq: Status: Active Protocol: Activity Type Activity Date Activity User E-sign Co-sign Detail Recorded Client Recorded Date Recorded By Document 09/05/24 08:58 WI [id number] 09/05/24 09:00 MT Document 09/12/24 09:09 [id number] 09/12/24 09:10 09/05/24 09/12/24 08:58 09:09 Wound Care Center Nurse 3 3-left dorsal hallux -Ulcer Cleansing Not Cleansed -Foul Odor after Cleansing No -Primary Dressing Covered/Secured with Dry Gauze & Roll Gauze, Secured with Tape -Other Covering betadine #2- L HALLUX plantar -Ulcer Cleansing Not Cleansed -Foul Odor after Cleansing No -Other Dressing betadine -Primary Dressing Covered/Secured with Dry Gauze,Dry Gauze & Roll Gauze,Secured with Tape -Other Covering used remainder of roll gauze #1- R HALLUX -Ulcer Cleansing Not Cleansed -Foul Odor after Cleansing No -Other Dressing betadine, adaptic -Primary Dressing Covered/Secured with Dry Gauze,Dry Dry Gauze & Gauze & Roll Roll Gauze, Gauze,Secured Secured with with Tape Tape -Other Covering betadine and gauze LLE -Lotion applied to leg before No compression wrap -Tubular Bandage Single Layer Single Layer -Size of Tubigrip Used Size E Size E -Size E ($) 1 1 RLE -Lotion applied to leg before No compression wrap -Compression Wrap Maurisio Wrap -Tubular Bandage Single Layer Single Layer -Size of Tubigrip Used Size E Size E -Size E ($) 1 1 Pain Scale: 0-10 Numeric Is Patient Pain Free? Yes Yes - Visit Discharge Discharge Condition Stable Ambulatory Status Wheelchair Transportation Private Auto Assessment/Plan Assessment/Plan (1) Non-pressure chronic ulcer of other part of right foot with fat layer exposed: CODE(S): L97.512 - Non-pressure chronic ulcer of other part of right foot with fat layer exposed PLAN: Patient was examined and evaluated. All findings were discussed with the patient. All questions were answered to the patient's satisfaction. Excisional debridement down to and including subcutaneous tissue with a number 3 mm dermal curette to the left hallux full-thickness wound without incident. Predebridement measurement was callus. Postdebridement measurement is 0.7 x 0.5 x 0.1 cm. Excisional debridement down to and including subcutaneous tissue with a number 3 mm dermal curette to left hallux dorsal full-thickness wound without incident. Predebridement measurement was 0.8 x 1.5 x 0.1 cm. Postdebridement measurement is 1.0 x 1.8 x 0.1 cm. The left lower extremities are clean and patted dry. Betadine paint was applied to the plantar and dorsal full-thickness wound followed by dry sterile dressing and tape. Incision on the right hallux was dressed with Betadine paint dry sterile dressing and tape. Patient will continue to wear the surgical shoe on the right and diabetic shoe on the left to be weightbearing as tolerated. Continue to educate the nursing staff about strict blood sugar control. Will plan in the next 2 to 3 weeks for surgery to the left hallux consisting of arthroplasty to the IPJ and delayed primary closure Follow-up at the wound care center with Dr. Mcdaniel in 1 week. (2) Non-pressure chronic ulcer of other part of left foot with fat layer exposed: CODE(S): L97.522 - Non-pressure chronic ulcer of other part of left foot with fat layer exposed
[2024-09-19 08:16] VITALS: BP 156/76; PULSE 82; RESP 16
--- NOTE | 2024-09-19 10:24 | PCM.WC.PN ---
History of Present Illness Date of Service: 09/19/24 Chief Complaint: Bilateral hallux full-thickness wounds. History of Wound: Full-thickness wound status post hallux arthroplasty with delayed primary closure to the right great toe. Full-thickness wound stable left hallux Progress of Wound: Status post right hallux arthroplasty with delayed primary closure. Full-thickness wound stable chronic left great toe Subjective Subjective Mr. Ruiz is a 74-year-old male presenting to clinic today for follow-up evaluation of full-thickness wound to left hallux status post hallux arthroplasty with delayed primary closure to right hallux. He is doing well. He has no pain to the bilateral lower extremity. Blood sugar has been well-controlled. He denies any breakdown from the surgical area. He does have a full-thickness wound to left hallux that is stable and being [facility]. Denies trauma. Denies constitutional symptoms. No other pedal complaints at this time. Objective Data Objective Data Vital Signs: Vital Signs Temp Pulse Resp BP O2 Del Method 96.7 F L 82 16 156/76 H Room Air 09/05/24 08:12 09/19/24 08:16 09/19/24 08:16 09/19/24 08:16 09/12/24 08:24 Oxygen Delivery Method Room Air Physical Exam Narrative Vascular: DP and PT pulse are palpable. Evidence of nonpitting edema appreciated to the right hallux. Skin temp great is warm to warm from proximal ankle and distal digit bilateral. No erythema or proximal streaking. Neurological: Light touch intact. Protective station is diminished. Dermatological: Incisions well coapted with suture to the right hallux. Evidence of full-thickness wound to the left hallux measuring plantarly 1.1 x 0.8 x 0.1 cm. Dorsal full-thickness wound to the left hallux is healed. No ecchymosis or erythema to the right hallux. No drainage or sign of infection bilateral. Excisional debridement down to and including subcutaneous tissue with a number 3 mm dermal curette to the left hallux full-thickness wound without incident. Predebridement measurement was callus. Postdebridement measurement is 1.1 x 0.8 x 0.1 cm. Musculoskeletal: No pain on palpation to the full-thickness wounds to the left hallux. No pain on palpation to the incision of the right hallux. No pain with calf pressure. Debridement Note Debridement Note Debridement Free Text: Excisional debridement down to and including subcutaneous tissue with a number 3 mm dermal curette to the left hallux full-thickness wound without incident. Predebridement measurement was callus. Postdebridement measurement is 1.1 x 0.8 x 0.1 cm. Post-Debridement Measurements and Additional Note: Post-Debridement Measurements/Treatment WALDEMAR - Nurse 1 - General Ulcer Assessment Start: 09/05/24 08:12 Freq: Status: Active Protocol: NARENDRA Activity Type Activity Date Activity User E-sign Co-sign Detail Recorded Client Recorded Date Recorded By Document 09/05/24 08:12 KW [id number] 09/05/24 08:15 KW Document 09/12/24 08:24 GM [id number] 09/12/24 08:30 GM Document 09/19/24 08:16 CP [id number] 09/19/24 08:21 CP 09/05/24 09/12/24 09/19/24 08:12 08:24 08:16 - Today's Visit Information Type of service Initial Visit Follow-up Visit Follow-up Visit (Physician/AUTOPSY PATHOLOGIST (Physician/AUTOPSY PATHOLOGIST ) ) Arrival Mode Ambulatory Ambulatory, Wheelchair Wheelchair Transfer Assistance None Accompanied by nurse Patient Identification Verified (Name & Yes Yes Yes ) Patient Requires Transmission-Based No No Precautions Safety Precautions NA Vital Signs Temperature (97.8 F-99.1 F) 96.7 F L Temperature Source Temporal Pulse Rate (60-100) 77 72 82 Pulse Location Monitor Monitor Monitor Respiratory Rate (12-18) 18 18 16 Respiratory rate source Observation Observation Observation Oxygen Delivery Method Room Air Room Air Blood Pressure (90/60-120/80) 154/57 H 146/73 H 156/76 H Blood Pressure Mean (mm Hg) 89 97 102 Source Monitor Monitor Monitor Position Semi-Fowlers Sitting Sitting Blood Pressure Location Right Arm Left Arm Left Arm History Since Last Visit- (Skip if this is Patient's initial visit) Have you changed medications since your No No No last visit? Any new allergies or adverse reactions No No No Had a fall/change in ADL's that may No No No increase risk of falls Signs or symptoms of abuse and/or No No No neglect since last visit Have you been in the hospital since your No No No last visit? Has dressing in place as prescribed Yes Yes Yes Has compression in place as prescribed Yes No N/A Has offloadiing in place as prescribed Yes Yes Yes Experienced any changes in pain level or No No No management Left Footwear Regular Shoe Regular Shoe Slipper Right Footwear Surgical Shoe Surgical Shoe Other Footwear with pressure with pressure (Comment) relief insole relief insole Other Footwear surg shoe Pain Scale: 0-10 Numeric Is Patient Pain Free? Yes Yes Yes WC - Nurse 1 - General Ulcer Measurement Start: 09/05/24 08:12 Freq: Status: Active Protocol: Activity Type Activity Date Activity User E-sign Co-sign Detail Recorded Client Recorded Date Recorded By Document 09/05/24 08:12 KW [id number] 09/05/24 08:15 KW Document 09/12/24 08:24 GM [id number] 09/12/24 08:30 GM Document 09/19/24 08:16 CP [id number] 09/19/24 08:21 CP 09/05/24 09/12/24 09/19/24 08:12 08:24 08:16 Wound Center Nurse 1 3-left dorsal hallux -Current Size (cm) - Length 0 -Current Size (cm) - Width 0 -Current Size (cm) - Depth 0 -Total Square Cm 0 -Date of Last Picture (Recall this 09/19/24 field) -Photo Taken Yes -Tunneling No -Undermining/Tunneling No -Exudate Amt None Present -Granulation Amt None Present (0 %) -Necrosis Amt None Present (0 %) -Structure Exposed N/A -Texture (Halley-wound Skin Appearance) No Abnormality -Moisture (Halley-wound Skin Appearance) No Abnormality -Color (Halley-wound Skin Appearance) No Abnormality -Temperature (Halley-wound Skin No Abnormality Appearance) (Pt Warm) -Tenderness on Palpation (Halley-wound No Skin Appearance) -Foul Odor after Cleansing No #2- L HALLUX plantar -Current Size (cm) - Length 0.4 0.5 0.1 -Current Size (cm) - Width 0.2 0.5 0.1 -Current Size (cm) - Depth 0.1 0.1 0.1 -Total Square Cm 0.08 0.25 0.01 -Date of Last Picture (Recall this 09/05/24 field) -Photo Taken No -Epithelialization Medium 34-66% None Present -Tunneling No No -Undermining/Tunneling No No -Circular Undermining No -Change in Wound Grade/Stage No -Exudate Amt None Present None Present Small -Wound Margin Distinct, Flat & Intact Outline Attached -Granulation Amt Small (1-33%) -Slough/Fibrin No No -Structure Exposed N/A -Texture (Halley-wound Skin Appearance) Assessed,Callus Assessed No Abnormality -Moisture (Halley-wound Skin Appearance) Assessed Assessed Dry/Scaly -Color (Halley-wound Skin Appearance) Assessed Assessed No Abnormality -Temperature (Halley-wound Skin No Abnormality No Abnormality No Abnormality Appearance) (Pt Warm) (Pt Warm) (Pt Warm) -Tenderness on Palpation (Halley-wound No No No Skin Appearance) -Ulcer Cleansing Rinsed/ Soap and Water Irrigated with Saline -Foul Odor after Cleansing No No -Anesthetic Used 5% Lidocaine 5% Lidocaine Gel Gel #1- R HALLUX -Combined with other wound No -Current Size (cm) - Length 0.1 0.1 -Current Size (cm) - Width 0.1 0.1 -Current Size (cm) - Depth 0.1 0.1 -Total Square Cm 0.01 0.01 -Date of Last Picture (Recall this 09/19/24 field) -Photo Taken No Yes -Tunneling No -Undermining/Tunneling No -Exudate Amt Medium None Present -Exudate Type Sanguineous -Wound Margin Flat & Intact -Granulation Amt None Present (0 %) -Slough/Fibrin No -Structure Exposed N/A -Texture (Halley-wound Skin Appearance) Assessed,Callus Assessed No Abnormality -Moisture (Halley-wound Skin Appearance) Assessed Assessed No Abnormality -Color (Halley-wound Skin Appearance) Assessed Assessed No Abnormality -Temperature (Halley-wound Skin No Abnormality No Abnormality No Abnormality Appearance) (Pt Warm) (Pt Warm) (Pt Warm) -Tenderness on Palpation (Halley-wound No Skin Appearance) -Ulcer Cleansing Soap and Water -Foul Odor after Cleansing No No -Wound Comment(s) 7 sutures sutures intact intact, two days post op Lower Limb Edema Present No Point of measurement (cm from the medial 38.5 instep) Point of Measurement (cm from the medial 23.5 instep) Left Calf (cm) 38.5 Left Ankle (cm) 25.2 WC - Nurse 2 - General Ulcer CM Notes Start: 03/05/25 08:12 Freq: Status: Active Protocol: Activity Type Activity Date Activity User E-sign Co-sign Detail Recorded Client Recorded Date Recorded By Document 09/05/24 08:32 ANTHONY [id number] 09/05/24 08:36 JF Document 09/12/24 08:44 ANTHONY [id number] 09/12/24 08:49 JF Document 09/19/24 08:41 [id number] 09/19/24 08:43 JF 09/05/24 09/12/24 09/19/24 08:32 08:44 08:41 Wound Center Nurse 2 3-left dorsal hallux -Time 08:47 08:41 -Correct Patient Yes No -Correct Side, Site, Position Yes No -Correct Procedure Yes No -Procedure Performed Yes No -Type of Procedure Debridement -Clinical Debridement Subcutaneous -Tissue Removed Subcutaneous -Post Debridement (cm) - Length 1 0 -Post Debridement (cm) - Width 1.8 0 -Post Debridement (cm) - Depth 0.1 0 -Total Square (Post) (cm) 1.8 0 -Area of Debridement (cm) - Length 1.0 0 -Area of Debridement (cm) - Width 1.8 0 -Total Square (Area) (cm) 1.80 0 -Tunneling No No -Undermining/Tunneling No No -Circular Undermining No -Wound/Ulcer Outcome Not Healed Healed- Epithelialized -Ulcer Cleansing Rinsed/ Irrigated with Saline -Foul Odor after Cleansing No No -Bioengineered Tissue No No -Bleeding Controlled with Pressure -Treatment Response Procedure Tolerated Well -Offloading Yes -Type of Offloading Surgical Shoe -Debridement - Subq, 1st 20sq cm Yes Yes #2- L HALLUX plantar -Time 08:33 08:45 08:42 -Correct Patient Yes Yes Yes -Correct Side, Site, Position Yes Yes Yes -Correct Procedure Yes Yes Yes -Procedure Performed Yes Yes Yes -Type of Procedure Debridement Debridement Debridement -Clinical Debridement Subcutaneous Subcutaneous Subcutaneous -Tissue Removed Subcutaneous Subcutaneous Subcutaneous -Post Debridement (cm) - Length 0.7 0.7 1.1 -Post Debridement (cm) - Width 0.5 0.5 0.8 -Post Debridement (cm) - Depth 0.1 0.1 0.1 -Total Square (Post) (cm) 0.35 0.35 0.88 -Area of Debridement (cm) - Length 0.7 0.7 1.1 -Area of Debridement (cm) - Width 0.5 0.5 0.8 -Total Square (Area) (cm) 0.35 0.35 0.88 -Tunneling No No No -Undermining/Tunneling No No No -Circular Undermining No No No -Wound/Ulcer Outcome Not Healed Not Healed Not Healed -Ulcer Cleansing Rinsed/ Rinsed/ Rinsed/ Irrigated with Irrigated with Irrigated with Saline Saline Saline -Foul Odor after Cleansing No No No -Bioengineered Tissue No No No -Bleeding Controlled with Pressure Pressure Pressure -Treatment Response Procedure Procedure Procedure Tolerated Well Tolerated Well Tolerated Well -Offloading Yes Yes No -Type of Offloading Surgical Shoe Surgical Shoe -Debridement - Subq, 1st 20sq cm Yes No Yes #1- R HALLUX -Correct Patient Yes No No -Correct Side, Site, Position No No No -Correct Procedure No No No -Procedure Performed No No No -Post Debridement (cm) - Length 0 -Post Debridement (cm) - Width 0 -Post Debridement (cm) - Depth 0 -Total Square (Post) (cm) 0 -Area of Debridement (cm) - Length 0 -Area of Debridement (cm) - Width 0 -Total Square (Area) (cm) 0 -Wound/Ulcer Outcome Healed- Healed- Healed- Surgical Surgical Surgical Closure Closure Closure Pain Scale: 0-10 Numeric Is Patient Pain Free? Yes Yes Yes WC - Nurse 3 - General Ulcer D/C NN Start: 09/05/24 08:12 Freq: Status: Active Protocol: Activity Type Activity Date Activity User E-sign Co-sign Detail Recorded Client Recorded Date Recorded By Document 09/05/24 08:58 VA [id number] 09/05/24 09:00 VA Document 09/12/24 09:09 [id number] 09/12/24 09:10 Document 09/19/24 08:56 [id number] 09/19/24 08:58 09/05/24 09/12/24 09/19/24 08:58 09:09 08:56 Wound Care Center Nurse 3 3-left dorsal hallux -Ulcer Cleansing Not Cleansed -Foul Odor after Cleansing No -Primary Dressing Covered/Secured with Dry Gauze & Roll Gauze, Secured with Tape -Other Covering betadine #2- L HALLUX plantar -Ulcer Cleansing Not Cleansed Not Cleansed -Foul Odor after Cleansing No No -Other Dressing betadine -Primary Dressing Covered/Secured with Dry Gauze,Dry Dry Gauze & Gauze & Roll Roll Gauze, Gauze,Secured Secured with with Tape Tape -Other Covering used remainder of roll gauze #1- R HALLUX -Ulcer Cleansing Not Cleansed Not Cleansed -Foul Odor after Cleansing No No -Other Dressing betadine, adaptic -Primary Dressing Covered/Secured with Dry Gauze,Dry Dry Gauze & Dry Gauze & Gauze & Roll Roll Gauze, Roll Gauze, Gauze,Secured Secured with Secured with with Tape Tape Tape -Other Covering betadine and gauze LLE -Lotion applied to leg before No No compression wrap -Tubular Bandage Single Layer Single Layer Single Layer -Size of Tubigrip Used Size E Size E Size E -Size E ($) 1 1 1 RLE -Lotion applied to leg before No No compression wrap -Compression Wrap Maurisio Wrap -Tubular Bandage Single Layer Single Layer Single Layer -Size of Tubigrip Used Size E Size E Size E -Size E ($) 1 1 1 Pain Scale: 0-10 Numeric Is Patient Pain Free? Yes Yes Yes WC - Visit Discharge Discharge Condition Stable Stable Ambulatory Status Wheelchair Wheelchair Transportation Private Auto Private Auto Assessment/Plan Assessment/Plan (1) Non-pressure chronic ulcer of other part of right foot with fat layer exposed: CODE(S): L97.512 - Non-pressure chronic ulcer of other part of right foot with fat layer exposed PLAN: Patient was examined and evaluated. All findings were discussed with the patient. All questions were answered to the patient's satisfaction. Excisional debridement down to and including subcutaneous tissue with a number 3 mm dermal curette to the left hallux full-thickness wound without incident. Predebridement measurement was callus. Postdebridement measurement is 1.1 x 0.8 x 0.1 cm. The left hallux are clean and patted dry. The full-thickness wound was dressed Betadine paint sterile Band-Aid. The right hallux incision was dressed with Betadine paint dry sterile dressing and tape. Patient can ambulate as tolerated. Will begin authorization with the patient insurance for elective outpatient surgery to the left hallux with arthroplasty and delayed primary closure of the full-thickness wound. Risk and benefits discussed with the patient great detail. All this will be discussed with the POA when the time is needed. Follow-up at the wound care center with Dr. Mcdaniel in 2 week. (2) Non-pressure chronic ulcer of other part of left foot with fat layer exposed: CODE(S): L97.522 - Non-pressure chronic ulcer of other part of left foot with fat layer exposed
--- NOTE | 2024-09-20 08:22 | WC ---
PHOTO 09/19/24 LEFT GREAT TOE PLANTAR
--- NOTE | 2024-09-20 08:25 | WC ---
PHOTO 09/19/24 LEFT DORSAL GREAT TOE
--- NOTE | 2024-09-20 08:30 | WC ---
PHOTO 09/19/24 RIGHT GREAT TOE
== END 2024-10-01 23:59 | disposition home or self-care (01) ==
LOC: WC 08:15
PROVIDERS: PCP Internal Medicine Infectious Disease; Referring Provider Internal Medicine Infectious Disease; Visit Provider Podiatrist Foot & Ankle Surgery
DX: E11.621 Type 2 diabetes mellitus with foot ulcer (principal); L97.512 Non-pressure chronic ulcer of other part of right foot with fat layer exposed; L97.522 Non-pressure chronic ulcer of other part of left foot with fat layer exposed; Z79.4 Long term (current) use of insulin; R60.0 Localized edema; Z79.82 Long term (current) use of aspirin; Z96.698 Presence of other orthopedic joint implants
CPT/HCPCS: 11042

== ENCOUNTER 2024-10-24 08:15 | Outpatient (RCR) | payer MEDICARE, MEDICAID, SELFPAY ==
[2024-10-02 00:56] VITALS: BP 156/76; PULSE 82; RESP 16; TEMP 35.9
[2024-10-03 08:08] VITALS: BP 154/67; PULSE 74; RESP 18; TEMP 36.3
--- NOTE | 2024-10-03 08:56 | PN.PCM_ITS ---
History of Present Illness Date of Service: 10/03/24 Chief Complaint: Bilateral hallux full-thickness wounds. History of Wound: Full-thickness wound status post hallux arthroplasty with delayed primary closure to the right great toe. Full-thickness wound stable left hallux Progress of Wound: Status post right hallux arthroplasty with delayed primary closure. Full- thickness wound stable chronic left great toe Subjective Subjective Mr. Ruiz is a 74-year-old male presenting to clinic today follow-up evaluation of status post left hallux IPJ arthroplasty with delayed primary closure to the right hallux. He is doing well no pain. Here for suture removal. He is also here to have his full-thickness wound left hallux evaluated. He is waiting to have his catheter removed to move forward with surgical intervention to the left great toe as he did on the right great toe. Doing well no pain. Except with weightbearing and pressure to left great toe. No pain to the right hallux. Denies trauma. Denies constitutional symptoms. No other pedal complaints at this time. Objective Data Objective Data Vital Signs: Vital Signs Temp Pulse Resp BP O2 Del Method 97.4 F L 74 18 154/67 H Room Air 10/03/24 08:08 10/03/24 08:08 10/03/24 08:08 10/03/24 08:08 10/03/24 08:08 Oxygen Delivery Method Room Air Physical Exam Narrative Vascular: DP and PT pulse are palpable. Evidence of nonpitting edema appreciated to the right hallux. Skin temp great is warm to warm from proximal ankle and distal digit bilateral. No erythema or proximal streaking. Neurological: Light touch intact. Protective station is diminished. Dermatological: Incisions well coapted with suture to the right hallux. Evidence of full-thickness wound to the left hallux measuring plantarly 1.5 x 0.4 x 0.2 cm. No drainage or sign of infection bilateral. Excisional debridement down to and including subcutaneous tissue with a number 3 mm dermal curette to the left hallux full-thickness wound without incident. Predebridement measurement was callus. Postdebridement measurement is 1.5 x 0.4 x 0.2 cm. Musculoskeletal: No pain on palpation to the full-thickness wounds to the left hallux. No pain on palpation to the incision of the right hallux. No pain with calf pressure. Debridement Note Debridement Note Debridement Free Text: Excisional debridement down to and including subcutaneous tissue with a number 3 mm dermal curette to the left hallux full-thickness wound without incident. Predebridement measurement was callus. Postdebridement measurement is 1.5 x 0.4 x 0.2 cm. Post-Debridement Measurements and Additional Note: Post-Debridement Measurements/Treatment - Nurse 1 - General Ulcer Assessment Start: 10/03/24 08:08 Freq: Status: Active Protocol: NARENDRA Activity Type Activity Date Activity User E-sign Co-sign Detail Recorded Client Recorded Date Recorded By Document 10/03/24 08:08 KW [id number] 10/03/24 08:21 KW 10/03/24 08:08 - Today's Visit Information Type of service Follow-up Visit (Physician/TERMITE EXTERMINATOR ) Arrival Mode Ambulatory Patient Identification Verified (Name & Yes ) Vital Signs Temperature (97.8 F-99.1 F) 97.4 F L Temperature Source Temporal Pulse Rate (60-100) 74 Pulse Location Monitor Respiratory Rate (12-18) 18 Respiratory rate source Observation Oxygen Delivery Method Room Air Blood Pressure (90/60-120/80) 154/67 H Blood Pressure Mean (mm Hg) 96 Source Monitor Position Semi-Fowlers Blood Pressure Location Left Arm History Since Last Visit- (Skip if this is Patient's initial visit) Have you changed medications since your No last visit? Any new allergies or adverse reactions No Had a fall/change in ADL's that may No increase risk of falls Signs or symptoms of abuse and/or No neglect since last visit Have you been in the hospital since your No last visit? Has dressing in place as prescribed Yes Has compression in place as prescribed Yes Has offloadiing in place as prescribed Yes Experienced any changes in pain level or No management Left Footwear Surgical Shoe with pressure relief insole Right Footwear Surgical Shoe with pressure relief insole Pain Scale: 0-10 Numeric Is Patient Pain Free? Yes - Nurse 1 - General Ulcer Measurement Start: 10/03/24 08:08 Freq: Status: Active Protocol: Activity Type Activity Date Activity User E-sign Co-sign Detail Recorded Client Recorded Date Recorded By Document 10/03/24 08:08 KW [id number] 10/03/24 08:21 KW 10/03/24 08:08 Wound Center Nurse 1 #2- L HALLUX plantar -Exudate Amt Small -Exudate Type Serosanguineous -Wound Margin Distinct, Outline Attached -Granulation Amt Large (67-100%) -Granulation Quality [place] -Texture (Halley-wound Skin Appearance) Assessed -Moisture (Halley-wound Skin Appearance) Assessed -Color (Halley-wound Skin Appearance) Assessed -Temperature (Halley-wound Skin No Abnormality Appearance) (Pt Warm) -Tenderness on Palpation (Halley-wound No Skin Appearance) -Ulcer Cleansing Soap and Water -Foul Odor after Cleansing No -Anesthetic Used 5% Lidocaine Gel #1- R HALLUX -Exudate Amt Small -Exudate Type Serosanguineous -Wound Margin Thickened -Granulation Amt Large (67-100%) -Granulation Quality [place] -Texture (Halley-wound Skin Appearance) Assessed,Callus -Moisture (Halley-wound Skin Appearance) Assessed -Color (Halley-wound Skin Appearance) Assessed -Temperature (Halley-wound Skin No Abnormality Appearance) (Pt Warm) -Tenderness on Palpation (Halley-wound No Skin Appearance) -Ulcer Cleansing Soap and Water -Foul Odor after Cleansing No -Anesthetic Used 5% Lidocaine Gel WC - Nurse 2 - General Ulcer CM Notes Start: 10/03/24 08:08 Freq: Status: Active Protocol: Activity Type Activity Date Activity User E-sign Co-sign Detail Recorded Client Recorded Date Recorded By Document 10/03/24 08:28 ANTHONY [id number] 10/03/24 08:36 ANTHONY 10/03/24 08:28 Wound Center Nurse 2 #2- L HALLUX plantar -Time 08:29 -Correct Patient Yes -Correct Side, Site, Position Yes -Correct Procedure Yes -Procedure Performed Yes -Type of Procedure Debridement -Clinical Debridement Subcutaneous -Tissue Removed Subcutaneous -Post Debridement (cm) - Length 1.5 -Post Debridement (cm) - Width 0.4 -Post Debridement (cm) - Depth 0.2 -Total Square (Post) (cm) 0.60 -Area of Debridement (cm) - Length 1.5 -Area of Debridement (cm) - Width 0.4 -Total Square (Area) (cm) 0.60 -Tunneling No -Undermining/Tunneling No -Circular Undermining No -Wound/Ulcer Outcome Not Healed -Ulcer Cleansing Rinsed/ Irrigated with Saline -Foul Odor after Cleansing No -Bioengineered Tissue No -Bleeding Controlled with Pressure -Treatment Response Procedure Tolerated Well -Offloading Yes -Type of Offloading Surgical Shoe -Debridement - Subq, 1st 20sq cm Yes #1- R HALLUX -Correct Patient Yes -Correct Side, Site, Position No -Correct Procedure No -Procedure Performed No -Post Debridement (cm) - Length 0 -Post Debridement (cm) - Width 0 -Post Debridement (cm) - Depth 0 -Total Square (Post) (cm) 0 -Area of Debridement (cm) - Length 0 -Area of Debridement (cm) - Width 0 -Total Square (Area) (cm) 0 -Wound/Ulcer Outcome Healed- Surgical Closure Pain Scale: 0-10 Numeric Is Patient Pain Free? Yes - Nurse 3 - General Ulcer D/C NN Start: 10/03/24 08:08 Freq: Status: Active Protocol: Activity Type Activity Date Activity User E-sign Co-sign Detail Recorded Client Recorded Date Recorded By Document 10/03/24 08:53 OR [id number] 10/03/24 08:55 OR 10/03/24 08:53 Wound Care Center Nurse 3 #2- L HALLUX plantar -Foul Odor after Cleansing No -Negative Pressure Wound Therapy N/A -Other Dressing betadine -Primary Dressing Covered/Secured with Dry Gauze,Dry Gauze & Roll Gauze,Secured with Tape #1- R HALLUX -Foul Odor after Cleansing No -Negative Pressure Wound Therapy N/A -Other Dressing betadine -Primary Dressing Covered/Secured with Dry Gauze,Dry Gauze & Roll Gauze,Secured with Tape LLE -Tubular Bandage Single Layer -Size of Tubigrip Used Size E -Size E ($) 1 RLE -Tubular Bandage Single Layer -Size of Tubigrip Used Size E -Size E ($) 1 Pain Scale: 0-10 Numeric Is Patient Pain Free? Yes WC - Visit Discharge Discharge Condition Stable Ambulatory Status Wheelchair Transportation Private Auto Medication Reconcilliation completed & No provided to patient/care provider Clinical Summary of Care Provided Yes Notes: group home Assessment/Plan Assessment/Plan (1) Non-pressure chronic ulcer of other part of left foot with fat layer exposed: CODE(S): L97.522 - Non-pressure chronic ulcer of other part of left foot with fat layer exposed PLAN: Patient was examined and evaluated. All findings were discussed with the patient. All questions were answered to the patient's satisfaction. Excisional debridement down to and including subcutaneous tissue with a number 3 mm dermal curette to the left hallux full-thickness wound without incident. Predebridement measurement was callus. Postdebridement measurement is 1.5 x 0.4 x 0.2 cm. The left hallux are clean and patted dry. The full-thickness wound was dressed Betadine paint sterile Band-Aid. The right hallux incision was dressed with Betadine paint dry sterile dressing and tape. Betadine paint was applied to the stitches on the right hallux, stitches were removed with a 15 blade and sterile pickup without incident. Steri-Strips applied. Betadine was applied to the Steri-Strips of the right hallux. And the Steri-Strips were covered with gauze and tape. Educated the nursing staff at the longterm facility to change the left and right hallux daily until follow-up. Follow-up at the wound care center with Dr. Mcdaniel in 1 week (2) Non-pressure chronic ulcer of other part of right foot with fat layer exposed: CODE(S): L97.512 - Non-pressure chronic ulcer of other part of right foot with fat layer exposed PLAN: nathaniel
--- NOTE | 2024-10-04 09:55 | WC ---
PHOTO 10/03/24 RIGHT HALLUX
--- NOTE | 2024-10-04 09:57 | WC ---
PHOTO 10/03/24 LEFT HALLUX PLANTAR
[2024-10-10 08:14] VITALS: BP 162/76; PULSE 80; RESP 18; TEMP 35.9
--- NOTE | 2024-10-10 09:09 | PN.PCM_ITS ---
History of Present Illness Date of Service: 10/10/24 Chief Complaint: Bilateral hallux full-thickness wounds. History of Wound: Full-thickness wound status post hallux arthroplasty with delayed primary closure to the right great toe. Full-thickness wound stable left hallux Progress of Wound: Status post right hallux arthroplasty with delayed primary closure. Full- thickness wound stable chronic left great toe Subjective Subjective Mr. Dowling is a 74-year-old diabetic male presented wound care center today for follow-up evaluation of right foot IPJ arthroplasty with delayed primary closure. Patient is doing well he admits to some redness to the right great toe but denies any drainage or pain. He does make a full-thickness wound to the left great toe that he has been treating here at the wound care center. We are waiting on surgery approval from his insurance as well as consent from the POA to move forward with IPJ arthroplasty and delayed primary closure to the left great toe. He denies any trauma. Denies constitutional symptoms. No other pedal complaints at this time. Objective Data Objective Data Vital Signs: Vital Signs Temp Pulse Resp BP O2 Del Method 96.6 F L 80 18 162/76 H Room Air 10/10/24 08:14 10/10/24 08:14 10/10/24 08:14 10/10/24 08:14 10/10/24 08:14 Oxygen Delivery Method Room Air Physical Exam Narrative Vascular: DP and PT pulse are palpable. Evidence of nonpitting edema appreciated to the right hallux. Skin temp great is warm to warm from proximal ankle and distal digit bilateral. Erythema to the right hallux is blanchable. There is evidence of spitting suture. Neurological: Light touch intact. Protective station is diminished. Dermatological: The incision to the right hallux is closed but evidence of spitting suture that was eventually removed. Culture was taken. Evidence of full-thickness wound to the left hallux measuring 1.2 x 0.6 x 0.1 cm. Wound base is granular with no sign of infection. Excisional debridement down to and including subcutaneous tissue with a number 3 mm dermal curette to the left hallux full-thickness wound without incident. Predebridement measurement was callus. Postdebridement measurement is 1.2 x 0.6 x 0.1 cm. Musculoskeletal: No pain on palpation to the full-thickness wounds to the left hallux. No pain on palpation to the incision of the right hallux. No pain with calf pressure. Debridement Note Debridement Note Debridement Free Text: Excisional debridement down to and including subcutaneous tissue with a number 3 mm dermal curette to the left hallux full-thickness wound without incident. Predebridement measurement was callus. Postdebridement measurement is 1.2 x 0.6 x 0.1 cm. Post-Debridement Measurements and Additional Note: Post-Debridement Measurements/Treatment - Nurse 1 - General Ulcer Assessment Start: 10/03/24 08:08 Freq: Status: Active Protocol: [email or web address].[email or web address] Activity Type Activity Date Activity User E-sign Co-sign Detail Recorded Client Recorded Date Recorded By Document 10/03/24 08:08 KW [id number] 10/03/24 08:21 KW Document 10/10/24 08:14 [id number] 10/10/24 08:17 10/03/24 10/10/24 08:08 08:14 - Today's Visit Information Type of service Follow-up Visit Follow-up Visit (Physician/READING EFFICIENCY COURSE DIRECTOR (Physician/READING EFFICIENCY COURSE DIRECTOR ) ) Arrival Mode Ambulatory Ambulatory Transfer Assistance None Patient Identification Verified (Name & Yes Yes ) Vital Signs Temperature (97.8 F-99.1 F) 97.4 F L 96.6 F L Temperature Source Temporal Oral Pulse Rate (60-100) 74 80 Pulse Location Monitor Monitor Respiratory Rate (12-18) 18 18 Respiratory rate source Observation Observation Oxygen Delivery Method Room Air Room Air Blood Pressure (90/60-120/80) 154/67 H 162/76 H Blood Pressure Mean (mm Hg) 96 104 Source Monitor Monitor Position Semi-Fowlers Sitting Blood Pressure Location Left Arm Left Arm History Since Last Visit- (Skip if this is Patient's initial visit) Have you changed medications since your No No last visit? Any new allergies or adverse reactions No No Had a fall/change in ADL's that may No No increase risk of falls Signs or symptoms of abuse and/or No No neglect since last visit Have you been in the hospital since your No No last visit? Has dressing in place as prescribed Yes Yes Has compression in place as prescribed Yes N/A Has offloadiing in place as prescribed Yes N/A Experienced any changes in pain level or No No management Left Footwear Surgical Shoe Regular Shoe with pressure relief insole Right Footwear Surgical Shoe Regular Shoe with pressure relief insole Pain Scale: 0-10 Numeric Is Patient Pain Free? Yes Yes WC - Nurse 1 - General Ulcer Measurement Start: 10/03/24 08:08 Freq: Status: Active Protocol: Activity Type Activity Date Activity User E-sign Co-sign Detail Recorded Client Recorded Date Recorded By Document 10/03/24 08:08 KW [id number] 10/03/24 08:21 KW Document 10/10/24 08:14 [id number] 10/10/24 08:17 10/03/24 10/10/24 08:08 08:14 Wound Center Nurse 1 #2- L HALLUX plantar -Current Size (cm) - Length 0.1 -Current Size (cm) - Width 0.1 -Current Size (cm) - Depth 0.1 -Total Square Cm 0.01 -Photo Taken No -Epithelialization None Present -Tunneling No -Undermining/Tunneling No -Circular Undermining No -Exudate Amt Small None Present -Exudate Type Serosanguineous -Wound Margin Distinct, Distinct, Outline Outline Attached Attached -Granulation Amt Large (67-100%) Small (1-33%) -Granulation Quality [place] -Texture (Halley-wound Skin Appearance) Assessed Assessed -Moisture (Halley-wound Skin Appearance) Assessed Assessed -Color (Halley-wound Skin Appearance) Assessed Assessed -Temperature (Halley-wound Skin No Abnormality Appearance) (Pt Warm) -Tenderness on Palpation (Halley-wound No Skin Appearance) -Ulcer Cleansing Soap and Water Soap and Water -Foul Odor after Cleansing No No -Anesthetic Used 5% Lidocaine 5% Lidocaine Gel Gel #1- R HALLUX -Current Size (cm) - Length 0.1 -Current Size (cm) - Width 0.1 -Current Size (cm) - Depth 0.1 -Total Square Cm 0.01 -Photo Taken No -Epithelialization None Present -Tunneling No -Undermining/Tunneling No -Circular Undermining No -Exudate Amt Small None Present -Exudate Type Serosanguineous -Wound Margin Thickened Distinct, Outline Attached -Granulation Amt Large (67-100%) Small (1-33%) -Granulation Quality [place] -Texture (Halley-wound Skin Appearance) Assessed,Callus Assessed, Localized Edema -Moisture (Halley-wound Skin Appearance) Assessed Assessed -Color (Halley-wound Skin Appearance) Assessed Assessed, Erythema -Temperature (Halley-wound Skin No Abnormality No Abnormality Appearance) (Pt Warm) (Pt Warm) -Tenderness on Palpation (Halley-wound No No Skin Appearance) -Ulcer Cleansing Soap and Water -Foul Odor after Cleansing No -Anesthetic Used 5% Lidocaine 5% Lidocaine Gel Gel WC - Nurse 2 - General Ulcer CM Notes Start: 10/03/24 08:08 Freq: Status: Active Protocol: Activity Type Activity Date Activity User E-sign Co-sign Detail Recorded Client Recorded Date Recorded By Document 10/03/24 08:28 [id number] 10/03/24 08:36 Document 10/10/24 08:28 [id number] 10/10/24 08:31 JF 10/03/24 10/10/24 08:28 08:28 Wound Center Nurse 2 #2- L HALLUX plantar -Time 08:29 08:29 -Correct Patient Yes Yes -Correct Side, Site, Position Yes Yes -Correct Procedure Yes Yes -Procedure Performed Yes Yes -Type of Procedure Debridement Debridement -Clinical Debridement Subcutaneous Subcutaneous -Tissue Removed Subcutaneous Subcutaneous -Post Debridement (cm) - Length 1.5 1.2 -Post Debridement (cm) - Width 0.4 0.6 -Post Debridement (cm) - Depth 0.2 0.1 -Total Square (Post) (cm) 0.60 0.72 -Area of Debridement (cm) - Length 1.5 1.2 -Area of Debridement (cm) - Width 0.4 0.6 -Total Square (Area) (cm) 0.60 0.72 -Tunneling No No -Undermining/Tunneling No No -Circular Undermining No No -Wound/Ulcer Outcome Not Healed Not Healed -Ulcer Cleansing Rinsed/ Rinsed/ Irrigated with Irrigated with Saline Saline -Foul Odor after Cleansing No No -Bioengineered Tissue No No -Bleeding Controlled with Pressure Pressure -Treatment Response Procedure Procedure Tolerated Well Tolerated Well -Offloading Yes No -Type of Offloading Surgical Shoe -Debridement - Subq, 1st 20sq cm Yes Yes #1- R HALLUX -Correct Patient Yes Yes -Correct Side, Site, Position No No -Correct Procedure No No -Procedure Performed No No -Post Debridement (cm) - Length 0 0.1 -Post Debridement (cm) - Width 0 0.1 -Post Debridement (cm) - Depth 0 0.1 -Total Square (Post) (cm) 0 0.01 -Area of Debridement (cm) - Length 0 0.1 -Area of Debridement (cm) - Width 0 0.1 -Total Square (Area) (cm) 0 0.01 -Wound/Ulcer Outcome Healed- Not Healed Surgical Closure Pain Scale: 0-10 Numeric Is Patient Pain Free? Yes Yes - Nurse 3 - General Ulcer D/C NN Start: 10/03/24 08:08 Freq: Status: Active Protocol: Activity Type Activity Date Activity User E-sign Co-sign Detail Recorded Client Recorded Date Recorded By Document 10/03/24 08:53 MT [id number] 10/03/24 08:55 MT Document 10/10/24 08:45 [id number] 10/10/24 08:47 10/03/24 10/10/24 08:53 08:45 Wound Care Center Nurse 3 #2- L HALLUX plantar -Ulcer Cleansing Not Cleansed -Foul Odor after Cleansing No -Negative Pressure Wound Therapy N/A -Other Dressing betadine -Primary Dressing Covered/Secured with Dry Gauze,Dry Dry Gauze & Gauze & Roll Roll Gauze, Gauze,Secured Secured with with Tape Tape #1- R HALLUX -Ulcer Cleansing Not Cleansed -Foul Odor after Cleansing No No -Negative Pressure Wound Therapy N/A -Other Dressing betadine -Primary Dressing Covered/Secured with Dry Gauze,Dry Dry Gauze & Gauze & Roll Roll Gauze, Gauze,Secured Secured with with Tape Tape LLE -Lotion applied to leg before No compression wrap -Tubular Bandage Single Layer Single Layer -Size of Tubigrip Used Size E Size E -Size E ($) 1 1 RLE -Lotion applied to leg before No compression wrap -Tubular Bandage Single Layer Single Layer -Size of Tubigrip Used Size E Size E -Size E ($) 1 1 Pain Scale: 0-10 Numeric Is Patient Pain Free? Yes Yes - Visit Discharge Discharge Condition Stable Stable Ambulatory Status Wheelchair Ambulatory Transportation Private Auto Private Auto Medication Reconcilliation completed & No provided to patient/care provider Clinical Summary of Care Provided Yes Yes Notes: [facility] Given new darco shoe for left foot Assessment/Plan Assessment/Plan (1) Non-pressure chronic ulcer of other part of left foot with fat layer exposed: CODE(S): L97.522 - Non-pressure chronic ulcer of other part of left foot with fat layer exposed PLAN: Patient was examined and evaluated. All findings were discussed with the patient. All questions were answered to the patient's satisfaction. The right hallux spitting suture was removed with a sterile pickup and 15 blade done without incident. Culture was taken. The patient will be placed on doxycy devlin 100 mg twice daily. Excisional debridement down to and including subcutaneous tissue with a number 3 mm dermal curette to the left hallux full-thickness wound without incident. Predebridement measurement was callus. Postdebridement measurement is 1.2 x 0.6 x 0.1 cm. The left hallux is white clean and patted dry. Betadine paint was applied to the left hallux and covered with sterile gauze and tape. Betadine paint was applied to the spitting suture area on the right hallux and covered with sterile gauze and tape. Dressing changes to the bilateral great toes will be changed daily. Will reach out to surgery scheduling to see when will be having the patient surgery to the left great toe consisting of IPJ arthroplasty with delayed primary closure to be done at [facility]. Follow-up at the wound care center with Dr. Mcdaniel in 1 week (2) Non-pressure chronic ulcer of other part of right foot with fat layer exposed: CODE(S): L97.512 - Non-pressure chronic ulcer of other part of right foot with fat layer exposed
--- NOTE | 2024-10-10 13:58 | WC ---
Nurse called after pt appointment today to discuss compression orders. States pt is continuously refusing to wear his compression as it is ordered per physician. Please discuss at f/u with Dr. Mcdaniel.
[2024-10-24 08:21] VITALS: BP 146/65; PULSE 69; RESP 18; TEMP 37.1
--- NOTE | 2024-10-24 10:18 | PCM.WC.PN ---
History of Present Illness Date of Service: 10/24/24 Chief Complaint: Bilateral hallux full-thickness wounds. History of Wound: Full-thickness wound status post hallux arthroplasty with delayed primary closure to the right great toe. Full-thickness wound stable left hallux Progress of Wound: Status post left hallux arthroplasty with delayed primary closure. Subjective Subjective Mr. FORRESTER is a 74-year-old diabetic male presented wound care center today for for follow-up and status post IPJ arthroplasty with delayed primary closure left hallux. Patient is approximately 1 week postop. He admits to some pain and rating his pain as 3 out of 10 on the pain scale. Controlled with oral pain medication. He has left his postoperative dressing clean dry and intact. Patient is also status post right hallux IPJ arthroplasty with delayed primary closure. Incision is healed and patient is doing well and has no pain to the right foot. He admits to weightbearing in surgical shoe. His blood sugar is well-controlled at the nursing facility. He denies trauma. Denies constitutional symptoms. No other pedal complaints at this time. Objective Data Objective Data Vital Signs: Vital Signs Temp Pulse Resp BP O2 Del Method 98.7 F 69 18 146/65 H Room Air 10/24/24 08:21 10/24/24 08:21 10/24/24 08:21 10/24/24 08:21 10/24/24 08:21 Oxygen Delivery Method Room Air Lab / Micro Data Micro: Microbiology 10/10/24 08:26 Ulcer, Decubitus - Other Gram Stain - Final 10/10/24 08:26 Ulcer, Decubitus - Other Wound Culture - Final Meth. resistant Staph. aureus 10/10/24 08:26 Ulcer, Decubitus - Other Anaerobic Culture - Final No anaerobic bacteria isolated. Physical Exam Narrative Vascular: DP and PT pulse are palpable. Evidence of nonpitting edema appreciated to the right hallux. Skin temp great is warm to warm from proximal ankle and distal digit bilateral. No erythema appreciated. Neurological: Light touch intact. Protective station is diminished. Dermatological: Right hallux incision is now healed. Full-thickness wound to the plantar aspect of the right hallux is now healed. Well coapted incision to the medial aspect of left hallux intact with suture. No surgical wound dehiscence. Evidence of delayed primary closure to the plantar aspect of the left hallux. No surgical wound dehiscence or sign of infection. Musculoskeletal: Mild pain to palpation to the left hallux incision. No pain with calf compression. Debridement Note Debridement Note Post-Debridement Measurements and Additional Note: Post-Debridement Measurements/Treatment - Nurse 1 - General Ulcer Assessment Start: 10/03/24 08:08 Freq: Status: Active Protocol: WC.LOWEXT Activity Type Activity Date Activity User E-sign Co-sign Detail Recorded Client Recorded Date Recorded By Document 10/03/24 08:08 KW [id number] 10/03/24 08:21 KW Document 10/10/24 08:14 GM [id number] 10/10/24 08:17 GM Document 10/24/24 08:21 GM [id number] 10/24/24 08:28 GM 10/03/24 10/10/24 10/24/24 08:08 08:14 08:21 - Today's Visit Information Type of service Follow-up Visit Follow-up Visit 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 ) ) ) Arrival Mode Ambulatory Ambulatory Wheelchair Transfer Assistance None None Patient Identification Verified (Name & Yes Yes Yes ) Vital Signs Temperature (97.8 F-99.1 F) 97.4 F L 96.6 F L 98.7 F Temperature Source Temporal Oral Temporal Pulse Rate (60-100) 74 80 69 Pulse Location Monitor Monitor Monitor Respiratory Rate (12-18) 18 18 18 Respiratory rate source Observation Observation Observation Oxygen Delivery Method Room Air Room Air Room Air Blood Pressure (90/60-120/80) 154/67 H 162/76 H 146/65 H Blood Pressure Mean (mm Hg) 96 104 92 Source Monitor Monitor Monitor Position Semi-Fowlers Sitting Sitting Blood Pressure Location Left Arm Left Arm Left Arm History Since Last Visit- (Skip if this is Patient's initial visit) Have you changed medications since your No No No last visit? Any new allergies or adverse reactions No No No Had a fall/change in ADL's that may No No No increase risk of falls Signs or symptoms of abuse and/or No No No neglect since last visit Have you been in the hospital since your No No No last visit? Has dressing in place as prescribed Yes Yes Yes Has compression in place as prescribed Yes N/A Yes Has offloadiing in place as prescribed Yes N/A Yes Experienced any changes in pain level or No No No management Left Footwear Surgical Shoe Regular Shoe Surgical Shoe with pressure with pressure relief insole relief insole Right Footwear Surgical Shoe Regular Shoe Surgical Shoe with pressure with pressure relief insole relief insole Pain Scale: 0-10 Numeric Is Patient Pain Free? Yes Yes No L Hallux -Description Aching -Intensity 4 -Duration (hours) Chronic -Pain Behavior No Change in Behavior -Alleviating Factors/Interventions Inactivity/ Resting,Will continue to monitor, Emotional Support WC - Nurse 1 - General Ulcer Measurement Start: 10/03/24 08:08 Freq: Status: Active Protocol: Activity Type Activity Date Activity User E-sign Co-sign Detail Recorded Client Recorded Date Recorded By Document 10/03/24 08:08 KW [id number] 10/03/24 08:21 KW Document 10/10/24 08:14 GM [id number] 10/10/24 08:17 GM Document 10/24/24 08:21 GM [id number] 10/24/24 08:28 GM 10/03/24 10/10/24 10/24/24 08:08 08:14 08:21 Wound Center Nurse 1 #2- L HALLUX plantar -Combined with other wound No -Current Size (cm) - Length 0.1 0.1 -Current Size (cm) - Width 0.1 0.1 -Current Size (cm) - Depth 0.1 0.1 -Total Square Cm 0.01 0.01 -Date of Last Picture (Recall this 10/24/24 field) -Photo Taken No Yes -Epithelialization None Present -Tunneling No No -Undermining/Tunneling No No -Circular Undermining No No -Exudate Amt Small None Present Medium -Exudate Type Serosanguineous Sanguineous -Wound Margin Distinct, Distinct, Outline Outline Attached Attached -Granulation Amt Large (67-100%) Small (1-33%) -Granulation Quality [place] -Texture (Halley-wound Skin Appearance) Assessed Assessed Assessed -Moisture (Halley-wound Skin Appearance) Assessed Assessed Assessed -Color (Halley-wound Skin Appearance) Assessed Assessed Assessed -Temperature (Halley-wound Skin No Abnormality No Abnormality Appearance) (Pt Warm) (Pt Warm) -Tenderness on Palpation (Halley-wound No No Skin Appearance) -Ulcer Cleansing Soap and Water Soap and Water Rinsed/ Irrigated with Saline -Foul Odor after Cleansing No No No -Anesthetic Used 5% Lidocaine 5% Lidocaine Gel Gel -Wound Comment(s) sutures intact #1- R HALLUX -Current Size (cm) - Length 0.1 0.3 -Current Size (cm) - Width 0.1 0.4 -Current Size (cm) - Depth 0.1 0.1 -Total Square Cm 0.01 0.12 -Date of Last Picture (Recall this 10/24/24 field) -Photo Taken No Yes -Epithelialization None Present -Tunneling No No -Undermining/Tunneling No No -Circular Undermining No No -Exudate Amt Small None Present None Present -Exudate Type Serosanguineous -Wound Margin Thickened Distinct, Distinct, Outline Outline Attached Attached -Granulation Amt Large (67-100%) Small (1-33%) None Present (0 %) -Granulation Quality [place] -Texture (Halley-wound Skin Appearance) Assessed,Callus Assessed, Assessed Localized Edema -Moisture (Halley-wound Skin Appearance) Assessed Assessed Assessed -Color (Halley-wound Skin Appearance) Assessed Assessed, Assessed Erythema -Temperature (Halley-wound Skin No Abnormality No Abnormality No Abnormality Appearance) (Pt Warm) (Pt Warm) (Pt Warm) -Tenderness on Palpation (Halley-wound No No No Skin Appearance) -Ulcer Cleansing Soap and Water Rinsed/ Irrigated with Saline -Foul Odor after Cleansing No -Anesthetic Used 5% Lidocaine 5% Lidocaine 5% Lidocaine Gel Gel Gel WC - Nurse 2 - General Ulcer CM Notes Start: 10/03/24 08:08 Freq: Status: Active Protocol: Activity Type Activity Date Activity User E-sign Co-sign Detail Recorded Client Recorded Date Recorded By Document 10/03/24 08:28 [id number] 10/03/24 08:36 JF Document 10/10/24 08:28 JF [id number] 10/10/24 08:31 JF Document 10/24/24 08:36 DS [id number] 10/24/24 08:37 DS 10/03/24 10/10/24 10/24/24 08:28 08:28 08:36 Wound Center Nurse 2 #2- L HALLUX plantar -Time 08:29 08:29 08:36 -Correct Patient Yes Yes Yes -Correct Side, Site, Position Yes Yes Yes -Correct Procedure Yes Yes -Procedure Performed Yes Yes No -Type of Procedure Debridement Debridement -Clinical Debridement Subcutaneous Subcutaneous -Tissue Removed Subcutaneous Subcutaneous -Post Debridement (cm) - Length 1.5 1.2 -Post Debridement (cm) - Width 0.4 0.6 -Post Debridement (cm) - Depth 0.2 0.1 -Total Square (Post) (cm) 0.60 0.72 -Area of Debridement (cm) - Length 1.5 1.2 -Area of Debridement (cm) - Width 0.4 0.6 -Total Square (Area) (cm) 0.60 0.72 -Tunneling No No -Undermining/Tunneling No No -Circular Undermining No No -Wound/Ulcer Outcome Not Healed Not Healed Not Healed -Ulcer Cleansing Rinsed/ Rinsed/ Irrigated with Irrigated with Saline Saline -Foul Odor after Cleansing No No -Bioengineered Tissue No No -Bleeding Controlled with Pressure Pressure -Treatment Response Procedure Procedure Tolerated Well Tolerated Well -Offloading Yes No -Type of Offloading Surgical Shoe -Debridement - Subq, 1st 20sq cm Yes Yes #1- R HALLUX -Time 08:37 -Correct Patient Yes Yes Yes -Correct Side, Site, Position No No Yes -Correct Procedure No No -Procedure Performed No No No -Post Debridement (cm) - Length 0 0.1 -Post Debridement (cm) - Width 0 0.1 -Post Debridement (cm) - Depth 0 0.1 -Total Square (Post) (cm) 0 0.01 -Area of Debridement (cm) - Length 0 0.1 -Area of Debridement (cm) - Width 0 0.1 -Total Square (Area) (cm) 0 0.01 -Wound/Ulcer Outcome Healed- Not Healed Not Healed Surgical Closure Pain Scale: 0-10 Numeric Is Patient Pain Free? Yes Yes Yes WC - Nurse 3 - General Ulcer D/C NN Start: 10/03/24 08:08 Freq: Status: Active Protocol: Activity Type Activity Date Activity User E-sign Co-sign Detail Recorded Client Recorded Date Recorded By Document 10/03/24 08:53 RI [id number] 10/03/24 08:55 RI Document 10/10/24 08:45 [id number] 10/10/24 08:47 Document 10/24/24 09:02 RI [id number] 10/24/24 09:03 RI 10/03/24 10/10/24 10/24/24 08:53 08:45 09:02 Wound Care Center Nurse 3 #2- L HALLUX plantar -Ulcer Cleansing Not Cleansed -Foul Odor after Cleansing No -Negative Pressure Wound Therapy N/A -Other Dressing betadine betadine -Primary Dressing Covered/Secured with Dry Gauze,Dry Dry Gauze & Dry Gauze & Gauze & Roll Roll Gauze, Roll Gauze, Gauze,Secured Secured with Secured with with Tape Tape Tape #1- R HALLUX -Ulcer Cleansing Not Cleansed -Foul Odor after Cleansing No No -Negative Pressure Wound Therapy N/A -Other Dressing betadine -Primary Dressing Covered/Secured with Dry Gauze,Dry Dry Gauze & Gauze & Roll Roll Gauze, Gauze,Secured Secured with with Tape Tape LLE -Lotion applied to leg before No compression wrap -Tubular Bandage Single Layer Single Layer Single Layer -Size of Tubigrip Used Size E Size E Size F -Size E ($) 1 1 -Size F ($) 1 RLE -Lotion applied to leg before No compression wrap -Tubular Bandage Single Layer Single Layer Single Layer -Size of Tubigrip Used Size E Size E Size F -Size E ($) 1 1 -Size F ($) 1 Pain Scale: 0-10 Numeric Is Patient Pain Free? Yes Yes Yes WC - Visit Discharge Discharge Condition Stable Stable Stable Ambulatory Status Wheelchair Ambulatory Ambulatory Transportation Private Auto Private Auto Private Auto Medication Reconcilliation completed & No No provided to patient/care provider Clinical Summary of Care Provided Yes Yes Yes Notes: skilled nursing Given [facility] only had size F shoe for left . foot Assessment/Plan Assessment/Plan (1) Non-pressure chronic ulcer of other part of left foot with fat layer exposed: CODE(S): L97.522 - Non-pressure chronic ulcer of other part of left foot with fat layer exposed PLAN: Patient was examined and evaluated. All findings were discussed with the patient. All questions were answered to the patient's satisfaction. Patient is status post left hallux IPJ arthroplasty with delayed primary closure to the full-thickness wound to the left hallux. Patient is doing well approximately 1 week postop. The incision was dressed with Betadine paint and dry sterile dressing and compression wrap was donned to left lower extremity. Light Betadine paint was applied to the healed incision to the right hallux with dry sterile dressing and compression wrap donned. Patient will leave the dressing clean dry and intact. Patient will continue to bear weight as tolerated to the heel with surgical shoe to the left lower extremity. Patient can be full weightbearing as tolerated to the right lower extremity. Since the patient is having pain he will be given a prescription for pain medication Percocet 5/325 #28 tabs every 6 hours as needed for pain for 7 days. He will continue strict blood sugar control. Follow-up at the wound care center with Dr. Mcdaniel in 1 week
--- NOTE | 2024-10-25 09:38 | WC ---
PHOTO 10/24/24 RIGHT HALLUX
--- NOTE | 2024-10-25 09:40 | WC ---
PHOTO 10/24/24 LEFT HALLUX
== END 2024-10-31 23:59 | disposition home or self-care (01) ==
LOC: WC 08:15
PROVIDERS: PCP Internal Medicine Infectious Disease; Referring Provider Internal Medicine Infectious Disease; Visit Provider Podiatrist Foot & Ankle Surgery
DX: E11.621 Type 2 diabetes mellitus with foot ulcer (principal); L97.522 Non-pressure chronic ulcer of other part of left foot with fat layer exposed; L97.512 Non-pressure chronic ulcer of other part of right foot with fat layer exposed; Z79.4 Long term (current) use of insulin; R60.0 Localized edema; Z79.82 Long term (current) use of aspirin; Z79.899 Other long term (current) drug therapy
CPT/HCPCS: 11042; 87070; 87075; 87077; 87186; 87205; 99213; G0463

== ENCOUNTER 2024-11-21 08:15 | Outpatient (RCR) | payer MEDICARE, MEDICAID, SELFPAY ==
[2024-11-01 00:41] VITALS: BP 146/65; PULSE 69; RESP 18; TEMP 37.1
[2024-11-07 08:11] VITALS: BP 167/82; RESP 18; TEMP 35.7
--- NOTE | 2024-11-07 09:31 | PCM.WC.PN ---
History of Present Illness Date of Service: 11/07/24 Chief Complaint: Bilateral hallux full-thickness wounds. History of Wound: Full-thickness wound status post hallux arthroplasty with delayed primary closure to the right great toe. Full-thickness wound stable left hallux Progress of Wound: Status post left hallux arthroplasty with delayed primary closure. Subjective Subjective Mr. Ruiz is a 74-year-old diabetic male presenting to the wound care center today for follow-up evaluation of left hallux arthroplasty with delayed primary closure to the left great toe. He admits some redness and some drainage due to a fall yesterday. The dressing changes have been with Betadine paint and dry sterile dressing. His blood sugars well-controlled. He denies any constitutional symptoms. No other pedal complaints at this time. Objective Data Objective Data Vital Signs: Vital Signs Temp Pulse Resp BP O2 Del Method 96.3 F L 69 18 167/82 H Room Air 11/07/24 08:11 11/01/24 00:41 11/07/24 08:11 11/07/24 08:11 11/07/24 08:11 Oxygen Delivery Method Room Air Lab / Micro Data Micro: Microbiology 10/10/24 08:26 Ulcer, Decubitus - Other Gram Stain - Final 10/10/24 08:26 Ulcer, Decubitus - Other Wound Culture - Final Meth. resistant Staph. aureus 10/10/24 08:26 Ulcer, Decubitus - Other Anaerobic Culture - Final No anaerobic bacteria isolated. Physical Exam Narrative Vascular: DP and PT pulse are palpable. Evidence of nonpitting edema appreciated to the right hallux. Skin temp great is warm to warm from proximal ankle and distal digit bilateral. No erythema appreciated. Neurological: Light touch intact. Protective station is diminished. Dermatological: Evidence of serous drainage to the incision to the left hallux with no concern of infection. After sutures were removed there was a small full-thickness wound measuring 0.5 x 0.5 x 0.1 cm. Wound base is granular. Cannot rule out infection at this time. Excisional debridement down to including subcutaneous tissue with a number 3 mm dermal curette to the incision/full-thickness wound to the lateral aspect of the left hallux done without incident. Predebridement measurement was callus. Postdebridement measurement was 0.5 x 0.5 x 0.1 cm. Musculoskeletal: No pain on palpation to the left hallux incision. No pain with calf compression. Debridement Note Debridement Note Debridement Free Text: Excisional debridement down to including subcutaneous tissue with a number 3 mm dermal curette to the incision/full-thickness wound to the lateral aspect of the left hallux done without incident. Predebridement measurement was callus. Postdebridement measurement was 0.5 x 0.5 x 0.1 cm. 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 ) Arrival Mode Wheelchair Transfer Assistance None Patient Identification Verified (Name & Yes ) Patient Requires Transmission-Based No Precautions Vital Signs Temperature (97.8 F-99.1 F) 96.3 F L Temperature Source Temporal Pulse Location Monitor Respiratory Rate (12-18) 18 Respiratory rate source Observation Oxygen Delivery Method Room Air Blood Pressure (90/60-120/80) 167/82 H Blood Pressure Mean (mm Hg) 110 Source Monitor Position Sitting Blood Pressure Location Left Arm History Since Last Visit- (Skip if this is Patient's initial visit) Have you changed medications since your No last visit? Any new allergies or adverse reactions No Had a fall/change in ADL's that may Yes increase risk of falls Signs or symptoms of abuse and/or No neglect since last visit Have you been in the hospital since your No last visit? Has dressing in place as prescribed Yes Has compression in place as prescribed No Has offloadiing in place as prescribed Yes Experienced any changes in pain level or No management Left Footwear Surgical Shoe with pressure relief insole Right Footwear Surgical Shoe with pressure relief insole Pain Scale: 0-10 Numeric Is Patient Pain Free? Yes WALDEMAR Adams Nurse 1 - General Ulcer Measurement Start: 11/07/24 08:11 Freq: Status: Active Protocol: Activity Type Activity Date Activity User E-sign Co-sign Detail Recorded Client Recorded Date Recorded By Document 11/07/24 08:11 [id number] 11/07/24 08:24 11/07/24 08:11 Wound Center Nurse 1 #1- R HALLUX -Combined with other wound No -Current Size (cm) - Length 0.1 -Current Size (cm) - Width 0.1 -Current Size (cm) - Depth 0.1 -Total Square Cm 0.01 -Date of Last Picture (Recall this 11/07/24 field) -Photo Taken Yes -Change in Wound Grade/Stage No -Exudate Amt Large -Exudate Type Yellow/Green -Slough/Fibrin No -Necrosis Amt None Present (0 %) -Texture (Halley-wound Skin Appearance) Assessed -Moisture (Halley-wound Skin Appearance) Assessed -Color (Halley-wound Skin Appearance) Assessed, Erythema -Temperature (Halley-wound Skin No Abnormality Appearance) (Pt Warm) -Tenderness on Palpation (Halley-wound Yes Skin Appearance) -Ulcer Cleansing Soap and Water -Foul Odor after Cleansing No #2- L HALLUX plantar -Combined with other wound No -Current Size (cm) - Length 0.1 -Current Size (cm) - Width 0.1 -Current Size (cm) - Depth 0.1 -Total Square Cm 0.01 -Date of Last Picture (Recall this 11/07/24 field) -Photo Taken Yes -Epithelialization Large 67-100% -Tunneling No -Undermining/Tunneling No -Circular Undermining No -Exudate Amt None Present -Granulation Amt None Present (0 %) -Slough/Fibrin No -Texture (Halley-wound Skin Appearance) Assessed -Moisture (Halley-wound Skin Appearance) Assessed -Color (Halley-wound Skin Appearance) Assessed -Temperature (Halley-wound Skin No Abnormality Appearance) (Pt Warm) -Tenderness on Palpation (Halley-wound No Skin Appearance) Right Calf (cm) 38.8 Right Ankle (cm) 24 Left Calf (cm) 34.0 Left Ankle (cm) 24 WC - Nurse 2 - General Ulcer CM Notes Start: 11/07/24 08:11 Freq: Status: Active Protocol: Activity Type Activity Date Activity User E-sign Co-sign Detail Recorded Client Recorded Date Recorded By Document 11/07/24 08:30 JF [id number] 11/07/24 08:35 11/07/24 08:30 Wound Center Nurse 2 #1- R HALLUX -Correct Patient Yes -Correct Side, Site, Position No -Correct Procedure No -Procedure Performed No -Post Debridement (cm) - Length 0 -Post Debridement (cm) - Width 0 -Post Debridement (cm) - Depth 0 -Total Square (Post) (cm) 0 -Area of Debridement (cm) - Length 0 -Area of Debridement (cm) - Width 0 -Total Square (Area) (cm) 0 -Wound/Ulcer Outcome Healed- Epithelialized #2- L HALLUX plantar -Time 08:34 -Correct Patient Yes -Correct Side, Site, Position Yes -Correct Procedure Yes -Procedure Performed Yes -Type of Procedure Debridement -Clinical Debridement Subcutaneous -Tissue Removed Subcutaneous -Post Debridement (cm) - Length 0.5 -Post Debridement (cm) - Width 0.5 -Post Debridement (cm) - Depth 0.1 -Total Square (Post) (cm) 0.25 -Area of Debridement (cm) - Length 0.5 -Area of Debridement (cm) - Width 0.5 -Total Square (Area) (cm) 0.25 -Tunneling No -Undermining/Tunneling No -Circular Undermining No -Wound/Ulcer Outcome Not Healed -Ulcer Cleansing Rinsed/ Irrigated with Saline -Foul Odor after Cleansing No -Bioengineered Tissue No -Bleeding Controlled with Pressure -Treatment Response Procedure Tolerated Well -Offloading Yes -Type of Offloading Surgical Shoe -Debridement - Subq, 1st 20sq cm Yes Pain Scale: 0-10 Numeric Is Patient Pain Free? Yes WC - Nurse 3 - General Ulcer D/C NN Start: 11/07/24 08:11 Freq: Status: Active Protocol: Activity Type Activity Date Activity User E-sign Co-sign Detail Recorded Client Recorded Date Recorded By Document 11/07/24 08:46 [id number] 11/07/24 08:47 GM 11/07/24 08:46 Wound Care Center Nurse 3 #2- L HALLUX plantar -Ulcer Cleansing Not Cleansed -Foul Odor after Cleansing No -Negative Pressure Wound Therapy N/A -Primary Dressing Covered/Secured with Dry Gauze & Roll Gauze, Secured with Tape LLE -Lotion applied to leg before No compression wrap -Tubular Bandage Single Layer -Size of Tubigrip Used Size F -Size F ($) 1 RLE -Lotion applied to leg before No compression wrap -Tubular Bandage Single Layer -Size of Tubigrip Used Size F -Size F ($) 1 Pain Scale: 0-10 Numeric Is Patient Pain Free? Yes WC - Visit Discharge Discharge Condition Stable Ambulatory Status Wheelchair Transportation Private Auto Clinical Summary of Care Provided Yes Assessment/Plan Assessment/Plan (1) Non-pressure chronic ulcer of other part of left foot with fat layer exposed: CODE(S): L97.522 - Non-pressure chronic ulcer of other part of left foot with fat layer exposed PLAN: Patient was examined and evaluated. All findings were discussed with the patient. All questions were answered to the patient's satisfaction. Excisional debridement down to including subcutaneous tissue with a number 3 mm dermal curette to the incision/full-thickness wound to the lateral aspect of the left hallux done without incident. Predebridement measurement was callus. Postdebridement measurement was 0.5 x 0.5 x 0.1 cm. Culture was taken and the patient will be placed on oral antibiotics doxycycline 100 mg twice daily for 2 weeks. Will adjust antibiotics as needed. Patient is doing well after his surgery. Will continue daily wound care with Betadine paint and dry sterile dressing to left hallux. The right hallux is 100% healed with no concern of infection. Educated the facility to continue strict blood sugar control and watch the patient's weightbearing. Follow-up at the wound care center with Dr. Mcdaniel in 2 week
--- NOTE | 2024-11-08 10:16 | WC ---
PHOTO 11/07/24 RIGHT HALLUX
--- NOTE | 2024-11-08 10:19 | WC ---
PHOTO 11/07/24 LEFT HALLUX
--- NOTE | 2024-11-08 10:22 | WC ---
PHOTO 11/07/24 LEFT HALLUX
[2024-11-21 08:08] VITALS: BP 182/69; PULSE 70; RESP 18; TEMP 36.6
--- NOTE | 2024-11-21 09:27 | PCM.WC.PN ---
History of Present Illness Date of Service: 11/21/24 Chief Complaint: Bilateral hallux full-thickness wounds. History of Wound: Full-thickness wound status post hallux arthroplasty with delayed primary closure to the right great toe. Full-thickness wound stable left hallux Progress of Wound: Status post left hallux arthroplasty with delayed primary closure. Subjective Subjective Mr. Bergman is a 74-year-old diabetic male presenting to wound care today follow-up evaluation of status post left hallux arthroplasty with delayed primary closure. DOS: 10/15/2024. Patient is doing well. He has been compliant with dressing changes. 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 Doing well. Denies any pain to the left hallux. The right hallux is completely healed. Denies trauma. Denies constitutional symptoms. No other pedal complaints at this time. Objective Data Objective Data Vital Signs: Vital Signs Temp Pulse Resp BP O2 Del Method 97.9 F 70 18 182/69 H Room Air 11/21/24 08:08 11/21/24 08:08 11/21/24 08:08 11/21/24 08:08 11/21/24 08:08 Oxygen Delivery Method Room Air Lab / Micro Data Micro: Microbiology 11/07/24 11:07 Wound Abcess - Toe Gram Stain - Final 11/07/24 11:07 Wound Abcess - Toe Wound Culture - Final Meth. resistant Staph. aureus 11/07/24 11:07 Wound Abcess - Toe Anaerobic Culture - Final No anaerobic bacteria isolated. Physical Exam Narrative Vascular: DP and PT pulses are palpable to the bilateral lower extremity. No erythema to the bilateral foot. Skin temp great is warm to warm from proximal ankles to distal digit bilateral. Neurological: Light touch intact. Patient does respond to painful stimuli. Dermatological: Evidence of full-thickness wound secondary to spitting suture to the incision of the left hallux medially measuring 0.5 x 0.4 x 0.1 cm. Wound base is granular nature no sign of infection. The incision to the right hallux is healed. No sign of infection. Excisional debridement down to including subcutaneous tissue with a number 3 mm dermal curette to the full-thickness wound at the level of the incision of the medial left hallux. Predebridement measurement 0.2 x 0.2 x 0.1 cm. Postdebridement measurement is 0.5 x 0.4 x 0.1 cm. Musculoskeletal: Increased range of motion to the IPJ of the bilateral hallux. No pain on palpation to full-thickness wound to the left hallux. No pain with calf pressure. Debridement Note Debridement Note Debridement Free Text: Excisional debridement down to including subcutaneous tissue with a number 3 mm dermal curette to the full-thickness wound at the level of the incision of the medial left hallux. Predebridement measurement 0.2 x 0.2 x 0.1 cm. Postdebridement measurement is 0.5 x 0.4 x 0.1 cm. Post-Debridement Measurements and Additional Note: Post-Debridement Measurements/Treatment - Nurse 1 - General Ulcer Assessment Start: 11/07/24 08:11 Freq: Status: Active Protocol: NARENDRA Activity Type Activity Date Activity User E-sign Co-sign Detail Recorded Client Recorded Date Recorded By Document 11/07/24 08:11 [id number] 11/07/24 08:24 Document 11/21/24 08:08 [id number] 11/21/24 08:22 11/07/24 11/21/24 08:11 08:08 - Today's Visit Information Type of service Follow-up Visit Follow-up Visit (Physician/BUILDING GUARD DEPUTY SHERIFF (Physician/BUILDING GUARD DEPUTY SHERIFF ) ) Arrival Mode Wheelchair Wheelchair Transfer Assistance None Accompanied by nurse Patient Identification Verified (Name & Yes Yes ) Patient Requires Transmission-Based No Precautions Vital Signs Temperature (97.8 F-99.1 F) 96.3 F L 97.9 F Temperature Source Temporal Temporal Pulse Rate (60-100) 70 Pulse Location Monitor Monitor Respiratory Rate (12-18) 18 18 Respiratory rate source Observation Observation Oxygen Delivery Method Room Air Room Air Blood Pressure (90/60-120/80) 167/82 H 182/69 H Blood Pressure Mean (mm Hg) 110 106 Source Monitor Monitor Position Sitting Semi-Fowlers Blood Pressure Location Left Arm Left Forearm History Since Last Visit- (Skip if this is Patient's initial visit) Have you changed medications since your No No last visit? Any new allergies or adverse reactions No No Had a fall/change in ADL's that may Yes No increase risk of falls Signs or symptoms of abuse and/or No No neglect since last visit Have you been in the hospital since your No No last visit? Has dressing in place as prescribed Yes Yes Has compression in place as prescribed No Yes Has offloadiing in place as prescribed Yes N/A Experienced any changes in pain level or No No management Left Footwear Surgical Shoe Regular Shoe with pressure relief insole Right Footwear Surgical Shoe Regular Shoe with pressure relief insole Pain Scale: 0-10 Numeric Is Patient Pain Free? Yes Yes WC - Nurse 1 - General Ulcer Measurement Start: 11/07/24 08:11 Freq: Status: Active Protocol: Activity Type Activity Date Activity User E-sign Co-sign Detail Recorded Client Recorded Date Recorded By Document 11/07/24 08:11 GM [id number] 11/07/24 08:24 GM Document 11/21/24 08:08 KW [id number] 11/21/24 08:22 KW 11/07/24 11/21/24 08:11 08:08 Wound Center Nurse 1 #1- R HALLUX -Combined with other wound No -Current Size (cm) - Length 0.1 -Current Size (cm) - Width 0.1 -Current Size (cm) - Depth 0.1 -Total Square Cm 0.01 -Date of Last Picture (Recall this 11/07/24 field) -Photo Taken Yes -Change in Wound Grade/Stage No -Exudate Amt Large -Exudate Type Yellow/Green -Slough/Fibrin No -Necrosis Amt None Present (0 %) -Texture (Halley-wound Skin Appearance) Assessed -Moisture (Halley-wound Skin Appearance) Assessed -Color (Halley-wound Skin Appearance) Assessed, Erythema -Temperature (Halley-wound Skin No Abnormality Appearance) (Pt Warm) -Tenderness on Palpation (Halley-wound Yes Skin Appearance) -Ulcer Cleansing Soap and Water -Foul Odor after Cleansing No #2- L HALLUX plantar -Combined with other wound No -Current Size (cm) - Length 0.1 0.1 -Current Size (cm) - Width 0.1 0.1 -Current Size (cm) - Depth 0.1 0 -Total Square Cm 0.01 0.01 -Date of Last Picture (Recall this 11/07/24 11/21/24 field) -Photo Taken Yes -Epithelialization Large 67-100% -Tunneling No -Undermining/Tunneling No -Circular Undermining No -Exudate Amt None Present -Wound Margin Indistinct, Non -Visible -Granulation Amt None Present (0 %) -Slough/Fibrin No -Texture (Halley-wound Skin Appearance) Assessed Assessed,Callus -Moisture (Halley-wound Skin Appearance) Assessed Assessed -Color (Halley-wound Skin Appearance) Assessed Assessed -Temperature (Halley-wound Skin No Abnormality No Abnormality Appearance) (Pt Warm) (Pt Warm) -Tenderness on Palpation (Halley-wound No No Skin Appearance) -Ulcer Cleansing Soap and Water -Foul Odor after Cleansing No Right Calf (cm) 38.8 Right Ankle (cm) 24 Left Calf (cm) 34.0 Left Ankle (cm) 24 WC - Nurse 2 - General Ulcer CM Notes Start: 11/07/24 08:11 Freq: Status: Active Protocol: Activity Type Activity Date Activity User E-sign Co-sign Detail Recorded Client Recorded Date Recorded By Document 11/07/24 08:30 ANTHONY [id number] 11/07/24 08:35 Document 11/21/24 08:35 [id number] 11/21/24 08:37 11/07/24 11/21/24 08:30 08:35 Wound Center Nurse 2 #1- R HALLUX -Correct Patient Yes -Correct Side, Site, Position No -Correct Procedure No -Procedure Performed No -Post Debridement (cm) - Length 0 -Post Debridement (cm) - Width 0 -Post Debridement (cm) - Depth 0 -Total Square (Post) (cm) 0 -Area of Debridement (cm) - Length 0 -Area of Debridement (cm) - Width 0 -Total Square (Area) (cm) 0 -Wound/Ulcer Outcome Healed- Epithelialized #2- L HALLUX plantar -Time 08:34 08:35 -Correct Patient Yes Yes -Correct Side, Site, Position Yes Yes -Correct Procedure Yes Yes -Procedure Performed Yes Yes -Type of Procedure Debridement Debridement -Clinical Debridement Subcutaneous Subcutaneous -Tissue Removed Subcutaneous Subcutaneous -Post Debridement (cm) - Length 0.5 0.5 -Post Debridement (cm) - Width 0.5 0.4 -Post Debridement (cm) - Depth 0.1 0.1 -Total Square (Post) (cm) 0.25 0.20 -Area of Debridement (cm) - Length 0.5 0.5 -Area of Debridement (cm) - Width 0.5 0.4 -Total Square (Area) (cm) 0.25 0.20 -Tunneling No No -Undermining/Tunneling No No -Circular Undermining No No -Wound/Ulcer Outcome Not Healed Not Healed -Ulcer Cleansing Rinsed/ Rinsed/ Irrigated with Irrigated with Saline Saline -Foul Odor after Cleansing No No -Bioengineered Tissue No No -Bleeding Controlled with Pressure Pressure -Treatment Response Procedure Procedure Tolerated Well Tolerated Well -Offloading Yes Yes -Type of Offloading Surgical Shoe Surgical Shoe -Assistive Device(s) Wheelchair -Debridement - Subq, 1st 20sq cm Yes Yes Pain Scale: 0-10 Numeric Is Patient Pain Free? Yes Yes - Nurse 3 - General Ulcer D/C NN Start: 11/07/24 08:11 Freq: Status: Active Protocol: Activity Type Activity Date Activity User E-sign Co-sign Detail Recorded Client Recorded Date Recorded By Document 11/07/24 08:46 GM [id number] 11/07/24 08:47 GM Document 11/21/24 08:50 CP [id number] 11/21/24 08:52 CP 11/07/24 11/21/24 08:46 08:50 Wound Care Center Nurse 3 #2- L HALLUX plantar -Ulcer Cleansing Not Cleansed betadine swab -Foul Odor after Cleansing No -Negative Pressure Wound Therapy N/A -Primary Dressing Covered/Secured with Dry Gauze & Dry Gauze, Roll Gauze, Secured with Secured with Tape Tape LLE -Lotion applied to leg before No compression wrap -Tubular Bandage Single Layer -Size of Tubigrip Used Size F -Size F ($) 1 RLE -Lotion applied to leg before No compression wrap -Tubular Bandage Single Layer -Size of Tubigrip Used Size F -Size F ($) 1 Pain Scale: 0-10 Numeric Is Patient Pain Free? Yes Yes WC - Visit Discharge Discharge Condition Stable Stable Ambulatory Status Wheelchair Wheelchair Transportation Private Auto Private Auto Medication Reconcilliation completed & No provided to patient/care provider Clinical Summary of Care Provided Yes Yes Facility Type Bonding Equipment Operator Care Facility Orders Sent Yes Assessment/Plan Assessment/Plan (1) Non-pressure chronic ulcer of other part of left foot with fat layer exposed: CODE(S): L97.522 - Non-pressure chronic ulcer of other part of left foot with fat layer exposed PLAN: Patient was examined and evaluated. All findings were discussed with the patient. All questions were answered to the patient's satisfaction. Excisional debridement down to including subcutaneous tissue with a number 3 mm dermal curette to the full-thickness wound at the level of the incision of the medial left hallux. Predebridement measurement 0.2 x 0.2 x 0.1 cm. Postdebridement measurement is 0.5 x 0.4 x 0.1 cm. Patient will continue to take his antibiotic as prescribed. The left hallux is white clean and patted dry. The area was dressed with Betadine paint and dry gauze. Wound care orders were given for the facility. Educated the patient continue to watch for any incontinence to keep his dressing clean dry and intact. Continue being weightbearing as tolerated to the bilateral lower extremity. Will continue strict blood sugar control Follow-up at the wound care center with Dr. Mcdaniel in 2 week
--- NOTE | 2024-11-22 10:17 | WC ---
PHOTO 11/21/24 LEFT HALLUX
== END 2024-12-01 23:59 | disposition home or self-care (01) ==
LOC: WC 08:15
PROVIDERS: PCP Internal Medicine Infectious Disease; Referring Provider Internal Medicine Infectious Disease; Visit Provider Podiatrist Foot & Ankle Surgery
DX: L97.522 Non-pressure chronic ulcer of other part of left foot with fat layer exposed (principal); E11.9 Type 2 diabetes mellitus without complications; Z79.4 Long term (current) use of insulin; Z79.82 Long term (current) use of aspirin; Z79.899 Other long term (current) drug therapy
CPT/HCPCS: 11042; 87070; 87075; 87077; 87186; 87205

== ENCOUNTER 2024-12-05 08:04 | Outpatient (RCR) | payer MEDICARE, MEDICAID, SELFPAY ==
[2024-12-02 00:40] VITALS: BP 182/69; PULSE 70; RESP 18; TEMP 36.6
[2024-12-05 08:09] VITALS: BP 136/77; PULSE 74; RESP 18; TEMP 36.6
--- NOTE | 2024-12-05 08:48 | PCM.WC.PN ---
History of Present Illness Date of Service: 12/05/24 Chief Complaint: Bilateral hallux full-thickness wounds. History of Wound: Full-thickness wound status post hallux arthroplasty with delayed primary closure to the right great toe. Full-thickness wound stable left hallux Progress of Wound: Healed full-thickness wounds to the bilateral left and right hallux Subjective Subjective Mr. Ruiz is a 74-year-old diabetic male presenting to wound care center today for follow-up of status post IPJ arthroplasty as well as delayed primary closure to the bilateral hallux digits. Patient was dealing with a full-thickness wound to the left hallux after surgery but now after completing antibiotics and daily wound care the wound has now healed. The patient's blood sugars well-controlled. He does ambulate with assistance as well as using a wheelchair. Denies trauma. Denies constitutional symptoms. No other pedal complaints at this time. Objective Data Objective Data Vital Signs: Vital Signs Temp Pulse Resp BP 97.8 F 74 18 136/77 H 12/05/24 08:09 12/05/24 08:09 12/05/24 08:09 12/05/24 08:09 Lab / Micro Data Micro: Microbiology 11/07/24 11:07 Wound Abcess - Toe Gram Stain - Final 11/07/24 11:07 Wound Abcess - Toe Wound Culture - Final Meth. resistant Staph. aureus 11/07/24 11:07 Wound Abcess - Toe Anaerobic Culture - Final No anaerobic bacteria isolated. Physical Exam Narrative Vascular: DP and PT pulses are palpable to the bilateral lower extremity. No erythema to the bilateral foot. Skin temp great is warm to warm from proximal ankles to distal digit bilateral. Neurological: Light touch intact. Patient does respond to painful stimuli. Dermatological: Full-thickness wound to left hallux is now healed. No erythema drainage or sign of infection. Musculoskeletal: Increased range of motion to the IPJ of the bilateral hallux. No pain on palpation to bilateral lower extremity. No pain with calf pressure. Debridement Note Debridement Note Post-Debridement Measurements and Additional Note: Post-Debridement Measurements/Treatment WALDEMAR - Nurse 1 - General Ulcer Assessment Start: 12/05/24 08:09 Freq: Status: Active Protocol: RAVENEXT Activity Type Activity Date Activity User E-sign Co-sign Detail Recorded Client Recorded Date Recorded By Document 12/05/24 08:09 ANTHNOY [id number] 12/05/24 08:11 12/05/24 08:09 - Today's Visit Information Type of service Follow-up Visit (Physician/ANIMAL CARE WORKER ) Arrival Mode Wheelchair Transfer Assistance Manual Patient Identification Verified (Name & Yes ) Patient Requires Transmission-Based No Precautions Vital Signs Temperature (97.8 F-99.1 F) 97.8 F Temperature Source Temporal Pulse Rate (60-100) 74 Pulse Location Monitor Respiratory Rate (12-18) 18 Respiratory rate source Observation Blood Pressure (90/60-120/80) 136/77 H Blood Pressure Mean (mm Hg) 96 Source Monitor Position Sitting Blood Pressure Location Left Arm History Since Last Visit- (Skip if this is Patient's initial visit) Have you changed medications since your No last visit? Any new allergies or adverse reactions No Had a fall/change in ADL's that may No increase risk of falls Signs or symptoms of abuse and/or No neglect since last visit Have you been in the hospital since your No last visit? Has dressing in place as prescribed Yes Has compression in place as prescribed N/A Has offloadiing in place as prescribed N/A Experienced any changes in pain level or No management Pain Scale: 0-10 Numeric Is Patient Pain Free? Yes - Nurse 1 - General Ulcer Measurement Start: 12/05/24 08:09 Freq: Status: Active Protocol: Activity Type Activity Date Activity User E-sign Co-sign Detail Recorded Client Recorded Date Recorded By Document 12/05/24 08:09 JF [id number] 12/05/24 08:11 12/05/24 08:09 Wound Center Nurse 1 #2- L HALLUX plantar -Combined with other wound No -Current Size (cm) - Length 0.1 -Current Size (cm) - Width 0.1 -Current Size (cm) - Depth 0.1 -Total Square Cm 0.01 -Tunneling No -Undermining/Tunneling No -Circular Undermining No -Exudate Amt Medium -Exudate Type Serosanguineous -Wound Margin Distinct, Outline Attached -Granulation Amt Large (67-100%) -Granulation Quality [place] -Slough/Fibrin Yes -Necrosis Amt Large (67-100%) -Necrotic Tissue Type Adherent Slough -Structure Exposed N/A -Texture (Halley-wound Skin Appearance) Assessed,Callus -Moisture (Halley-wound Skin Appearance) Assessed -Color (Halley-wound Skin Appearance) Assessed -Temperature (Halley-wound Skin No Abnormality Appearance) (Pt Warm) -Tenderness on Palpation (Halley-wound No Skin Appearance) -Ulcer Cleansing Rinsed/ Irrigated with Saline -Foul Odor after Cleansing No WC - Nurse 2 - General Ulcer CM Notes Start: 12/05/24 08:09 Freq: Status: Active Protocol: Activity Type Activity Date Activity User E-sign Co-sign Detail Recorded Client Recorded Date Recorded By Document 12/05/24 08:30 ANTHONY [id number] 12/05/24 08:32 ANTHONY 12/05/24 08:30 Wound Center Nurse 2 -Correct Patient Yes -Correct Side, Site, Position No -Correct Procedure No -Procedure Performed No -Post Debridement (cm) - Length 0 -Post Debridement (cm) - Width 0 -Post Debridement (cm) - Depth 0 -Total Square (Post) (cm) 0 -Area of Debridement (cm) - Length 0 -Area of Debridement (cm) - Width 0 -Total Square (Area) (cm) 0 -Wound/Ulcer Outcome Healed- Epithelialized Pain Scale: 0-10 Numeric Is Patient Pain Free? Yes Assessment/Plan Assessment/Plan (1) Non-pressure chronic ulcer of other part of left foot with fat layer exposed: CODE(S): L97.522 - Non-pressure chronic ulcer of other part of left foot with fat layer exposed PLAN: Patient was examined and evaluated. All findings were discussed with the patient. All questions were answered to the patient's satisfaction. After physical examination of the patient's left hallux full-thickness wound is now healed. Patient has completed all the antibiotics that were prescribed. He did get daily dressing changes. At this time the patient shows 100% healing to the bilateral lower extremity. He will be discharged from the wound care center today and will follow-up in private office for continued valuation, palliative diabetic care as well as diabetic shoes.
--- NOTE | 2024-12-05 14:11 | WC ---
PHOTO 12/05/24 LEFT ANKLE
== END 2024-12-31 23:59 | disposition home or self-care (01) ==
LOC: WC 08:04
PROVIDERS: PCP Internal Medicine Infectious Disease; Referring Provider Internal Medicine Infectious Disease; Visit Provider Podiatrist Foot & Ankle Surgery
DX: Z09 Encounter for follow-up examination after completed treatment for conditions other than malignant neoplasm (principal); Z79.4 Long term (current) use of insulin; Z79.82 Long term (current) use of aspirin; Z79.899 Other long term (current) drug therapy
CPT/HCPCS: 99213; G0463